=== PATIENT | female | born 1935 | race Hispanic/Latino ===

== ENCOUNTER 2017-06-27 20:24 | Emergency (ER) | payer MEDICARE ==
[~2017-06-27] VITALS: Ht 160 cm; Wt 76.7 kg
[~2017-06-27 20:24] MED LIST: CIPRO500 MG PO; NEXIUM40 MG PO; PAROXETINE HCL20 MG PO; SIMVASTATIN40 MG PO
--- OUTSIDE RECORDS SUMMARY | 2017-06-27 20:27 | XMS REPORT | Clinical Summary ---
Author Author [facility] Organization [facility] Address Unknown Phone Unavailable Care Team Providers Care Canvass Manager Name Role Phone Jose Barkley MD PCP Allergies No Known Allergies Current Medications Prescription Sig. Disp. Refills Start End Date Status Date esomeprazole (NexIUM) 40 TAKE ONE CAPSULE BY MOUTH 0 07/19/19 Active MG capsule EVERY DAY 90 17 PARoxetine (PAXIL) 20 MG TAKE 1 TAB(S) ONCE A DAY 2 09/15/19 Active tablet BY MOUTH FOR 30 DAYS 17 Active Problems No known active problems Encounters Date Type Specialty Care Team Description 10/05/2016 Office Visit Otolaryngology Amie Grewal MD Throat pain in adult (Primary Dx) after 06/26/2016 Family History Medical History Relation Name Comments Stroke Father Ulcers Father stomach Other Mother heart problems Relation Name Status Comments Father Mother Social History Tobacco Use Types Packs/Day Years Used Date Never Smoker Alcohol Use Drinks/Week oz/Week Comments No Sex Assigned at Date Recorded Not on file Last Filed Vital Signs Vital Sign Reading Time Taken Blood Pressure 156/91 10/05/2016 1:08 PM CDT Pulse 78 10/05/2016 1:08 PM CDT Temperature - - Respiratory Rate - - Oxygen Saturation - - Inhaled Oxygen - - Concentration Weight 75.3 kg (166 lb) 10/05/2016 1:08 PM CDT Height 160 cm (5' 3") 10/05/2016 1:08 PM CDT Body Mass Index 29.41 10/05/2016 1:08 PM CDT Plan of Treatment Health Maintenance Due Date Last Done Comments ZOSTER VACCINE 1996 PNEUMOCOCCAL 2001 POLYSACCHARIDE VACCINE AGE 65 AND OVER PNEUMOCOCCAL-13 2001 INFLUENZA VACCINE 11/03/2016 Results Not on fileafter 06/26/2016 Insurance Payer Benefit Subscriber ID Type Phone Address Plan / Group [employer] CIGNA xxxxxxxxxxx [place] [address]
--- NOTE | 2017-06-27 21:27 | Diagnostic Imaging Report ---
EXAM: HIP RIGHT 2-3 VW (+/- PELVIS) INDICATION: Fall, right hip pain COMPARISON: None FINDINGS: BONES: No acute fractures. Subcentimeter focal sclerotic densities in the right humeral head most consistent with bone islands. JOINTS: No malalignment. Degenerative changes of the right hip. Partially visualized left hip arthroplasty. SOFT TISSUES: Regional vascular calcifications. IMPRESSION: No evidence of a pelvic or right hip fracture. Signed by: Dr. Sondra Frank M.D. on 06/27/2017 9:24 PM
--- NOTE | 2017-06-27 21:34 | Diagnostic Imaging Report ---
EXAM: KNEE RIGHT THREE VIEWS, AP, lateral and oblique INDICATION: Fall, right knee pain COMPARISON: None FINDINGS: BONES: Acute nondisplaced fracture of the distal femoral diaphysis with intra-articular extension at the intercondylar notch. JOINTS: No malalignment. SOFT TISSUES: Suprapatellar joint effusion IMPRESSION: Acute nondisplaced fracture of the distal femoral diaphysis with intra-articular extension at the intercondylar notch. Associated joint effusion. Signed by: Dr. Sondra Frank M.D. on 06/27/2017 9:31 PM
[2017-06-27] MEDS: ACETAMINOPHEN 325 MG TAB PO ONE ×2 (22:17→22:20)
[2017-06-27] MEDS ORDERED: TYLENOL WITH C1 EACH PO (22:23)
[2017-06-27 22:24] VITALS: BP 151/79
== END 2017-06-27 22:46 | disposition home or self-care (01) ==
LOC: ER 20:24
DX: S72.491A Other fracture of lower end of right femur, initial encounter for closed fracture (principal); M25.561 Pain in right knee; M25.551 Pain in right hip; W01.0XXA Fall on same level from slipping, tripping and stumbling without subsequent striking against object, initial encounter; Y92.000 Kitchen of unspecified non-institutional (private) residence as the place of occurrence of the external cause
CPT/HCPCS: 99284

== ENCOUNTER 2018-04-03 10:03 | Observation (INO) | payer MEDICARE ==
[~2018-04-03] VITALS: Ht 160 cm; Wt 72.1 kg
[~2018-04-03 10:03] MED LIST changes: +TYLENOL WITH C1 EACH PO
--- OUTSIDE RECORDS SUMMARY | 2018-04-03 10:06 | XMS REPORT | Clinical Summary ---
Author Author [facility] Address Unknown Phone Unavailable Care Team Providers Care Service Bar Cashier Name Role Phone John Barkley MD PCP Allergies No Known Allergies Medications End Date Status Medication Sig Dispensed Refills Start Date Active esomeprazole (NexIUM) 40 TAKE ONE 0 MG capsule CAPSULE BY 7 MOUTH EVERY DAY 90 Active PARoxetine (PAXIL) 20 MG TAKE 1 TAB(S) 2 tablet ONCE A DAY BY 7 MOUTH FOR 30 DAYS Status Hospital, Clinic, or Ordered Dose Route Frequency Start End Date Other Facility Date Administered Medication Active methylPREDNISolone 40 mg IM once 12/10/19 acetate (DEPO-MEDROL) 18 8 injection 40 mgIndications: Derangement of lateral meniscus of right knee Discontinued bupivacaine (MARCAINE) 0.5 mL inj once 12/10/19 0.5 % (5 mg/mL) injection 18 8 0.5 mLIndications: Derangement of lateral meniscus of right knee Ended lidocaine (XYLOCAINE) 10 10 mg inj once 12/29/19 mg/mL (1 %) injection 10 18 8 mgIndications: Primary osteoarthritis of right knee Ended methylPREDNISolone 40 mg IM once 12/29/19 acetate (DEPO-MEDROL) 18 8 injection 40 mgIndications: Primary osteoarthritis of right knee Active Problems Problem Noted Date Lateral subluxation of right patella 01/06/2018 Closed displaced fracture of condyle of right femur 01/06/2018 Derangement of lateral meniscus of right knee 12/17/2017 Primary osteoarthritis of right knee 12/17/2017 Peripheral tear of medial meniscus, current injury, right knee, initial 07/06/2017 encounter Encounters Care Team Description Date Type Specialty Al Cali Jr., MD Primary osteoarthritis of right knee (Primary Dx); Closed displaced fracture of condyle of right femur, sequela 12/28/2017 Office Visit Orthopedic Surgery Carina Mota MA 12/24/2017 Telephone Orthopedic Surgery Al Cali Jr., MD Derangement of lateral meniscus of right knee (Primary Dx); Primary osteoarthritis of right knee 12/09/2017 Office Visit Orthopedic Surgery Carina Mota MA Right knee pain, unspecified chronicity (Primary Dx) 12/07/2017 Orders Only Orthopedic Surgery after 04/02/2017 Family History Medical History Relation Name Comments Stroke Father Ulcers Father stomach Other Mother heart problems Relation Name Status Comments Father Mother Social History Date Tobacco Use Types Packs/Day Years Used Never Smoker Smokeless Tobacco: Never Used Alcohol Use Drinks/Week oz/Week Comments No Sex Assigned at Date Recorded Not on file Industry Job Start Date Occupation Not on file Not on file Not on file Travel End Travel History Travel Start No recent travel history available. Last Filed Vital Signs Time Taken Vital Sign Reading 12/28/2017 10:17 AM CDT Blood Pressure 166/75 12/28/2017 10:17 AM CDT Pulse 96 - Temperature - - Respiratory Rate - - Oxygen Saturation - - Inhaled Oxygen - Concentration 12/28/2017 10:17 AM CDT Weight 72.1 kg (159 lb) 12/28/2017 10:17 AM CDT Height 160 cm (5' 3") 12/28/2017 10:17 AM CDT Body Mass Index 28.17 Plan of Treatment Care Team Description Date Type Specialty Al Cali Jr., MD [address] [facility] [address] [place] [address] [phone] 04/27/2018 Office Visit Orthopedic Surgery Health Maintenance Due Date Last Done Comments SHINGLES VACCINES (1 of 1986 2) PNEUMOCOCCAL 2001 POLYSACCHARIDE VACCINE AGE 65 AND OVER PNEUMOCOCCAL-13 2001 INFLUENZA VACCINE 11/03/2017 Procedures Comments Procedure Name Priority Date/Time Associated Diagnosis CA ARTHROCENTESIS Routine 12/28/2017 Primary osteoarthritis of ASPIR&/INJ MAJOR JT/BURSA 10:00 AM CDT right knee W/O US CA ARTHROCENTESIS Routine 12/09/2017 Primary osteoarthritis of ASPIR&/INJ MAJOR JT/BURSA 10:15 AM CDT right knee W/O US after 04/02/2017 Results * Large Joint Arthrocentesis (12/28/2017 10:00 AM CDT) Narrative Performed At Al Cali Jr., MD 01/06/20185:18 PM Large Joint Arthrocentesis Consent given by: patient Site marked: site marked Timeout: Immediately prior to procedure a time out was called to verify the correct patient, procedure, equipment, computer network support specialist and site/side marked as required Supporting Documentation Indications: pain Procedure Details Preparation: Patient was prepped and draped in the usual sterile fashion Location: knee - R knee Right side: Needle size: 22 G Approach: medial Right knee medications administered: 40 mg methylPREDNISolone acetate 40 mg/mL; 1 mL bupivacaine 0.5 % (5 mg/mL) Patient tolerance: patient tolerated the procedure well with no immediate complications * Large Joint Arthrocentesis (12/09/2017 10:15 AM CDT) Narrative Performed At Al Cali Jr., MD 12/21/20179:05 PM Large Joint Arthrocentesis Consent given by: patient Site marked: site marked Timeout: Immediately prior to procedure a time out was called to verify the correct patient, procedure, equipment, computer network support specialist and site/side marked as required Supporting Documentation Indications: pain Procedure Details Preparation: Patient was prepped and draped in the usual sterile fashion Location: knee - R knee Right side: Needle size: 22 G Right knee medications administered: 40 mg methylPREDNISolone acetate 40 mg/mL; 1 mL bupivacaine 0.5 % (5 mg/mL) Patient tolerance: patient tolerated the procedure well with no immediate complications after 04/02/2017 Insurance Payer Benefit Subscriber ID Type Phone Address Plan / Group [employer] CIGNA xxxxxxxxxxx HMO [employer] HMO [place] ([place] [address] Advance Directives Patient has advance care planning documents on file. For more information, ephraim e contact: Héctor Pavon [address] [place] [id number]
--- OUTSIDE RECORDS SUMMARY | 2018-04-03 10:06 | XMS REPORT | Continuity of Care Document ---
Author Author [facility] Interface Address Unknown Phone Unavailable Problems Problem Status Onset Date Classification Date Reported Comments Source Peripheral tear of medial meniscus, current injury, right knee, initial encounter 07/06/2017 10/05/2017 [facility] [place] Pain in right knee 06/04/2017 09/03/2017 [facility] [place] M79.605 - PAIN IN LEFT LEG Active 05/24/2015 [facility] [place] 715.95 - OSTEOARTHROS NO Active 01/02/2015 [facility] [place] Lateral subluxation of right patella, initial encounter 09/03/2017 [facility] [place] Medications Medication Details Route Status Patient Instructions Ordering Provider Order Date Source Allergies, Adverse Reactions, Alerts Substance Category Reaction Severity Reaction type Status Date Reported Comments Source Immunizations Immunization Date Given Site Status Last Updated Comments Source Results Order Name Results Value Reference Range Date Interpretation Comments Source Knee wo contrast MRI Knee wo contrast MRI EXAMINATION: MRI of the right knee without contrast HISTORY: S83.104A Unspecified dislocation of right knee, initial encounter; medial right knee pain x6 months following a fall; right knee medial meniscus tear; right knee medial condyle subchondral insufficiency fracture COMPARISON: Radiograph dated 05/28/2017 and prior MR examination dated 06/29/2017 are reviewed. TECHNIQUE: Multiplanar, multisequence magnetic resonance imaging of the right knee is performed with an extremity coil without contrast. FINDINGS: Menisci: --Medial: Incomplete radial tear of the posterior horn of the medial meniscus is redemonstrated with near complete extrusion of the meniscal body within the medial gutter. There is underlying myxoid degeneration within the body of the medial meniscus. --Lateral: There is a nondisplaced horizontal tear versus myxoid degeneration involving the anterior horn of the lateral meniscus, similar to the prior examination. Ligaments: The anterior cruciate ligament is intact. There is diffuse thickening and increased intraligamentous signal within the proximal to mid fibers of the posterior cruciate ligament which remains intact. There is medial bowing of the medial collateral ligament which remains intact. The lateral collateral ligament complex is intact. Extensor mechanism: The extensor mechanism is intact. Muscles: There is normal signal intensity and muscle bulk of the musculature at the knee. Cartilage: Within the medial compartment, there is high-grade, near full- thickness to full-thickness chondrosis involving the weightbearing medial femoral condyle and matching medial tibial plateau, similar to the prior examination. Within the lateral compartment, there is no focal chondrosis or subchondral marrow edema. Within the patellofemoral compartment, there is near full-thickness and full-thickness chondrosis involving the lateral patellar facet and lateral aspect of the patellar median ridge at the superior pole the patella with underlying subchondral edema and cystic change. The trochlear articular cartilage is within normal limits. Bone: There has been interval increase in articular surface collapse/impaction at the site of subchondral insufficiency fracture involving the anterior to central weightbearing medial femoral condyle with associated underlying subchondral cystic change and ill-defined bone marrow edema. Nondisplaced, vertically oriented fracture involving the central aspect of the distal femur has largely healed and is only faintly visualized on the current examination. There is mild subchondral edema and cystic change within the patella. There are no suspicious bone marrow replacing lesions. Soft tissues: There is a small to moderate-sized knee effusion with mild scattered synovitis. There is trace fluid within a Mar's cyst. There is a small to moderate amount of loculated fluid within the semimembranosus-tibial collateral ligament bursa. IMPRESSION: 1. Incomplete radial tear of the posterior horn of the right knee medial meniscus redemonstrated with near complete extrusion of the meniscal body within the medial gutter. 2. Nondisplaced horizontal tear versus myxoid degeneration involving the anterior horn of the right knee lateral meniscus, similar to the prior examination. 3. Interval increase in articular surface collapse/impaction at the site of subchondral insufficiency fracture along the anterior to central weightbearing right medial femoral condyle with associated underlying subchondral cystic change and ill- defined bone marrow edema. 4. Nondisplaced, vertically oriented fracture involving the central aspect of the distal right femur has largely healed is only faintly visualized on the current examination. 5. Chronic moderate grade sprain of the right knee posterior cruciate ligament which remains intact, but demonstrates diffuse thickening and increased intraligamentous signal within the proximal to mid fibers of the PCL. 6. Moderate to severe medial and patellofemoral compartment, bicompartmental chondrosis of the right knee, similar to the prior examination. 7. Small to moderate-sized right knee effusion with mild scattered synovitis. 8. Mild to moderate right knee semimembranosus-tibial collateral ligament bursitis. 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 Possible small medial erosion at the base of the great toe proximal phalanx. No fracture or dislocation is identified. IMPRESSION: Degenerative change of the great toe MTP joint possibly in part related to gout. 10/19/2017 - - Read by: Kenneth Talbert MD Dictated Date/time: 10/20/17 09:05 Electronically Signed by: Kenneth Talbert MD 10/20/17 09:07 FINAL REPORT J[facility]Y Hern[facility]dez Bone Density [employer] MA Bone Density [employer] MA BONE DENSITY ASSESSMENT: 08/13/2017 CLINICAL DATA: Post menopausal and clinical risk for osteoporosis. Z13.820- Screening for osteoporosis M81.0 Age-related osteoporosis without current pathological fracture. M81.0 Age-Related Osteoporosis Without Current Pathological Fracture, Z13.820 Encounter For Screening For Osteoporosis/M81.0 Age-Related Osteoporosis Without Current Pathological Fracture, Z13.820 Encounter For Screening For Osteoporosis FINDINGS: Bone density evaluation was performed 08/13/2017 on the right femur neck using a Hologic unit. The BMD average for the exam is 0.687 g/cm2. The T-score is -1.50 and the Z-score is 0.70. This matches the World Health Organization's criteria for osteopenia and places the patient at a medium risk for fracture. An additional bone density evaluation was performed 08/13/2017 on the right hip using a Hologic unit. The BMD average for the exam is 0.731 g/cm2. The T-score is -1.70 and the Z-score is 0.40. This matches the World Health Organization's criteria for osteopenia and places the patient at a medium risk for fracture. An additional bone density evaluation was performed 08/13/2017 on the AP L1-L4 region of spine using a Hologic unit. The BMD average for the exam is 0.849 g/cm2. The T-score is -1.80 and the Z-score is 0.90. This matches the World Health Organization's criteria for osteopenia and places the patient at a medium risk for fracture. FRAX 10 year probability of major osteoporotic fracture is 7.7% and hip fracture is 1.8%. IMPRESSION: OSTEOPENIA Patient is at medium risk for fracture. Patient consult w/primary care provider is recommended. This exam was interpreted at [id number] at [facility]. Mag Porter M.D. ms/penrad:08/13/2017 11:36:02 Housing Development Specialist(s): Deidra LYONS(R)(Delores), [facility] 08/13/2017 - - Read by: Mag Porter MD Dictated Date/time: 08/13/17 11:36 Electronically Signed by: Mag Porter MD 08/13/17 11:36 [facility] [place] Knee wo contrast MRI Knee wo contrast MRI EXAMINATION: MRI of the right knee without contrast. HISTORY: S83.221A Peripheral tear of medial meniscus, current injury, right knee, initial encounter - S83.221A Peripheral tear of medial meniscus, current injury, right knee, initial encounter; AGE: 82 years GENDER: Female COMPARISON: Right knee radiographs 05/28/2017 TECHNIQUE: Multiplanar, multisequence magnetic resonance imaging of the right knee is performed with an extremity coil without contrast. FINDINGS: Menisci: Medial: There is a complete radial tear of the root of the posterior horn of the medial meniscus with moderate medial extrusion of the body. Myxoid degeneration is noted in the body of the medial meniscus. Lateral: The anterior horn, body, and posterior horn are intact. Ligaments: The anterior cruciate ligament and posterior cruciate ligament are intact. The medial collateral ligament and lateral collateral ligament complex are intact. Edema superficial and deep to the medial collateral ligament is favored to be related to underlying medial tibiofemoral compartment pathology. Extensor mechanism: The extensor mechanism is intact. Muscles: Mild edema in the vastus medialis and vastus lateralis muscles, likely reactive. Cartilage: The patellofemoral articular cartilage demonstrates grade IV chondromalacia in the superior patellar apex and lateral patellar facet with underlying reactive marrow change and subchondral cyst formation.. The medial tibiofemoral articular cartilage demonstrates grade 3 chondromalacia.. The lateral tibiofemoral articular cartilage demonstrates grade 2 chondral thinning.. Bone: There is an acute, impacted subchondral insufficiency fracture of the weightbearing medial femoral condyle. There is approximately 4 mm of impaction. There is marked surrounding marrow edema in the medial femoral condyle. In addition, there is microtrabecular fracturing of the distal femur extending from the subcortical central femoral trochlea approximately into the distal femoral diaphysis. This approaches but does not discretely disrupt the cortical surface of the central femoral trochlea. Soft tissues: There is a large knee joint effusion. Moderate semimembranosus- tibial collateral ligament bursitis. IMPRESSION: 1. Acute subchondral stress/insufficiency fracture of the medial femoral condyle with approximately 4 mm of impaction. Marked surrounding marrow edema. 2. Linear longitudinally oriented macrotrabecular fracture of the central distal femur extending from the subcortical central femoral trochlea superiorly into the distal femoral diaphysis. This approaches but does not discretely disrupt the cortical surface of the central femoral trochlea. 3. Complete tear of the root of the posterior horn of the medial meniscus with moderate medial extrusion. 4. 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 5. Large knee joint effusion. Moderate semimembranosus-tibial collateral ligament bursitis. Critical findings were discussed with Kt Hatch MD on 06/29/2017 5:18 PM CDT via telephone. 06/29/2017 - - Read by: Lio Panda MD Dictated Date/time: 06/29/17 17:01 Electronically Signed by: Lio Panda MD 06/29/17 17:19 FINAL REPORT JERRY Betty Knee 3 views DX Knee 3 views DX EXAM: Knee 3 views DX HISTORY: - pain in right knee m25.561 COMPARISON: None 3 views of the right knee. FINDINGS: No fracture is seen. No significant joint space narrowing. There is slight lateral subluxation of the patella on the Horizon view. Minimal joint fluid noted. Minimal developing superior posterior patellar osteophyte. Subchondral stenosis of the posterior patella. IMPRESSION: Mild degenerative change as described above. 05/28/2017 - - Read by: Kenneth Talebrt MD Dictated Date/time: 05/28/17 11:29 Electronically Signed by: Kenneth aTlbert MD 05/28/17 11:29 FINAL REPORT PILAR Cruza Hip 2/3 views uni DX Hip 2/3 views uni DX CLINICAL HISTORY: - Z96.642 Presence of left artificial hip joint AGE: 81 years GENDER: Female TECHNIQUE: Left hip radiographs, 3 views. COMPARISON: 04/03/2016 FINDINGS: There is no evidence of fracture or dislocation. Osseous mineralization is within normal limits. Postoperative changes from left total hip arthroplasty again noted. No evidence of periprosthetic lucency or fracture. AP view of the pelvis demonstrates mild right hip osteoarthrosis. Degenerative disc disease is seen in the visualized lower lumbar spine. IMPRESSION: Postoperative changes from left total hip arthroplasty without evidence of complication.. 10/07/2016 - - Read by: Lio Panda MD Dictated Date/time: 10/07/16 12:21 Electronically Signed by: Lio Panda MD 10/07/16 12:25 FINAL REPORT [facility]Y Hern[facility] Wrist complete DX Wrist complete DX Exam: Left wrist x-ray, 3 views Reason for Exam: - S63.502A Unspecified sprain of left wrist, initial encounter Comparison Exam: X-ray 01/22/2011 Discussion: No acute fracture line seen within the left wrist. Increased distance seen between the distal radius and ulna. This was also present on 2010 x-ray. The carpal bones are unremarkable. No suspicious osteoblastic or osteolytic lesions seen to suggest pathologic involvement. Sonographic soft tissue swelling is noted. Impression: 1. No acute fracture lines identified. 09/29/2016 - - Read by: Mick Olvera MD Dictated Date/time: 09/29/16 16:01 Electronically Signed by: Mick Olvera MD 09/29/16 16:05 FINAL REPORT JERRY Hern[facility]dez Chest 2 views DX Chest 2 views DX EXAM: Chest 2 views DX HISTORY: Z00.00 Encounter for general adult medical examination without abnormal findings COMPARISON: 04/25/2014 The heart size is normal and the lungs are clear. There is no pleural effusion or pneumothorax. Kyphosis and degenerative change of the spine noted. IMPRESSION: No acute abnormality. 06/15/2016 - - Read by: Kenneth Talbert MD Dictated Date/time: 06/15/16 16:51 Electronically Signed by: Kenneth Talbert MD 06/15/16 16:52 FINAL REPORT JERRY Cruza Hip 2/3 views uni DX Hip 2/3 views uni DX EXAMINATION: Left hip minimum 2 views HISTORY: M16.12 Unilateral primary osteoarthritis, left hip; FINDINGS: AP view of the pelvis and frog leg lateral views of the left hip are performed and compared to pelvic radiograph dated 12/04/2015. There is a left hip arthroplasty in unchanged near-anatomic alignment. Of note, the distal aspect of the femoral stem is not included on the frontal view, but is included on the frog-leg lateral view. There is no evidence of periprosthetic fracture or osteolysis of the visualized portions of the arthroplasty. There is no evidence of asymmetric liner wear or subsidence. The sacral ala appear intact. Degenerative changes of the lumbar spine are partially visualized. IMPRESSION: 1. Left hip arthroplasty in unchanged near-anatomic alignment without periprosthetic fracture, osteolysis, asymmetric liner wear, or subsidence. Of note, the distal aspect of the femoral stem is not included on the frontal view, but is included on the frog-leg lateral view. 2. Degenerative changes of the lumbar spine partially visualized. 04/03/2016 - - Read by: Rey Grajeda MD Dictated Date/time: 04/03/16 13:08 Electronically Signed by: Rey Grajeda MD 04/03/16 13:10 FINAL REPORT JERRY Cruza Pelvis AP DX Pelvis AP DX Pelvis x-ray AP 1 views History: 80-year-old female with chronic left hip pain. Comparison: 07/30/2015 Findings: The bony pelvis appears intact, there is no cortical disruption. The sacrum and SI joints partial visualized are unremarkable. The right hip joint space is narrow with mild arthritic changes. A left hip prosthesis is in place, the acetabular cup and prosthetic head are normal. The femoral stem was partial visualized. IMPRESSION: Unremarkable pelvis x-ray. 12/04/2015 - - Read by: Evelio Springer MD Dictated Date/time: 12/04/15 16:01 Electronically Signed by: Evelio Springer 12/04/15 16:03 FINAL REPORT JERRY Hernández Spine lumbar wo contrast MRI Spine lumbar wo contrast MRI MRI LUMBAR SPINE WITHOUT CONTRAST COMPARISON: 05/24/2015 radiograph exam. TECHNIQUE: Sagittal T1, sagittal T2 with fat saturation, axial T1 and axial T2 images were obtained. No intravenous gadolinium was given. FINDINGS: The paravertebral soft tissues are normal. The conus medullaris terminates at the T12-L1 level. Dextrocurvature of the lumbar spine is present. Lower thoracic spine facet osteoarthritis is present. T12-L1: Right extra foraminal annular fissure is seen. No central canal or foraminal stenosis. L1-L2: Moderate disc narrowing is present, with approximately 2 mm posterior disc osteophyte complex. There is minimal central canal stenosis. Mild left foraminal stenosis is present. Anterior osteophytes are present. L2-L3: 4 mm grade 1 retrolisthesis of L2 on L3 is present with mild disc bulge. Mild central canal stenosis. There is severe left foraminal stenosis and [id number] right foraminal stenosis due to disc osteophyte complex encroachment. L3-L4: 2 mm disc bulge is seen with mild to moderate central canal stenosis. Mild bilateral facet osteoarthritis is present. There is moderate left foraminal stenosis and mild right foraminal stenosis. L4-L5: Moderate ligamenta flava redundancy with mild central canal stenosis. Mild facet osteoarthritis is present. No foraminal stenosis. L5-S1: Minimal disc bulge. No central canal or foraminal stenosis. Large S1 and S2 level sacral canal and bilateral foraminal perineural cysts or Tarlov cysts are present with remodeling of the sacral canal. IMPRESSION: 1. Multilevel disc degenerative disease and spondylosis. Dextrocurvature. 2. L2-L3 significant degenerative changes with retrolisthesis, severe left foraminal stenosis and mild central canal stenosis. 3. L3-L4 [id number]-imithvsy central canal stenosis and moderate left foraminal stenosis. 4. Large S1 and S2 level sacral canal and bilateral foraminal perineural cysts or Tarlov cysts. 09/17/2015 - - Read by: Guerrero Lamb MD Dictated Date/time: 09/17/15 12:15 Electronically Signed by: Guerrero Lamb MD 09/17/15 15:11 FINAL REPORT PILAR Hern[facility]dez Pelvis AP DX Pelvis AP DX EXAM: Pelvis AP DX, Hip 1 view DX HISTORY: pain in left hip COMPARISON: None Frontal view of the pelvis and AP and lateral views of the left hip. Impression: There is advanced joint space narrowing of the left hip with subchondral sclerosis and small marginal osteophytes. Mild joint space narrowing of the right hip. No concerning osseous lesion. Vascular calcifications noted. No fracture is seen. 07/30/2015 - - Read by: Kenneth Talbert MD Dictated Date/time: 07/30/15 10:43 Electronically Signed by: Kenneth Talbert MD 07/30/15 10:46 FINAL REPORT PILAR Hernández Hip 1 view DX Hip 1 view DX EXAM: Pelvis AP DX, Hip 1 view DX HISTORY: pain in left hip COMPARISON: None Frontal view of the pelvis and AP and lateral views of the left hip. Impression: There is advanced joint space narrowing of the left hip with subchondral sclerosis and small marginal osteophytes. Mild joint space narrowing of the right hip. No concerning osseous lesion. Vascular calcifications noted. No fracture is seen. 07/30/2015 - - Read by: Kenneth Talbert MD Dictated Date/time: 07/30/15 10:43 Electronically Signed by: Kenneth Talbert MD 07/30/15 10:46 FINAL REPORT PILAR Hern[facility]dez Spine lumbar series DX Spine lumbar series DX Exam: Lumbar Spine X-ray, 5 views Reason for Exam: back pain Comparison Exam: 06/08/2008 Discussion: 5 non rib-bearing lumbar vertebral bodies are seen. Generalized osteopenia. Vertebral body heights are maintained. Dextroscoliosis seen within the lumbar spine. Grade 1 retrolisthesis seen of L2 on L3. Severe loss in disc height seen at the L1/L2 level. This is associated with kyphosis at this level. Note that a lumbar spine x-ray cannot rule out ligamentous injuries or spinal cord abnormalities. No dilated loops of bowel within the visualized portions of the abdomen and pelvis. Impression: 1. Vertebral body heights are maintained. Multilevel spondylosis as detailed above, most prominent within the upper lumbar spine. 05/24/2015 - - Read by: Mick Olvera MD Dictated Date/time: 05/24/15 10:45 Electronically Signed by: Mick Olvera MD 05/24/15 10:47 FINAL REPORT JERRY Hernández Femur series DX Femur series DX Exam: Left femur x-ray, 2 views Reason for Exam: leg pain Comparison Exam: Left hip x-ray 01/02/2015 Discussion: No acute bony abnormalities identified. Left knee joint is unremarkable for technique. Stable appearing osteoarthritis is seen involving the femoral acetabular joint. No suspicious osteoblastic or osteolytic lesions seen to suggest pathologic involvement. No radiopaque foreign bodies. Moderate amount of scattered plaque seen throughout much of the deep arterial system. Impression: 1. No acute bony abnormalities identified. No suspicious osteoblastic or osteolytic lesions seen to suggest pathologic involvement. 05/24/2015 - - Read by: Mick Olvera MD Dictated Date/time: 05/24/15 10:47 Electronically Signed by: Mick Olvera MD 05/24/15 10:49 FINAL REPORT JERRY Hernández Hip 2 views DX Hip 2 views DX Exam: Left hip x-ray, 2 views Reason for Exam: Osteoarthritis Comparison Exam: 08/08/2013 Discussion: No fractures or dislocations are seen within the left hip. Moderate to advanced osteoarthritis seen within the femoral acetabular joint. It has increased when compared to 2014 exam. No intraosseous lesions identified. No evidence seen for avascular necrosis of the femoral head. Impression: 1. Moderate to advanced osteoarthritis seen within the femoral acetabular joint. It has increased when compared to 2014 exam. 01/02/2015 - - Read by: Mick Olvera MD Dictated Date/time: 01/02/15 09:36 Electronically Signed by: Mick Olvera MD 01/02/15 09:38 FINAL REPORT JERRY Hernández Chest 2 views Chest 2 views CHEST RADIOGRAPHY CLINICAL HISTORY: 401.0 malignant essential hypertension COMPARISON IMAGIN11/13/2013 FINDINGS: Two views of the chest were acquired and submitted for evaluation. There has been no significant interval change. No pleural fluid is identified. The contour of the cardiac silhouette is within normal limits. There is no significant pulmonary consolidation or nodularity. Degenerative changes of the spine noted. IMPRESSION: No significant abnormality. 04/25/2014 - - Read by: Opal Castro DO Dictated Date/time: 04/25/14 14:14 Electronically Signed by: Opal Castro DO 04/25/14 14:15 FINAL REPORT JERRY Hern[facility]dez Chest 2 views Chest 2 views CHEST RADIOGRAPHY CLINICAL HISTORY: 272.0 pure hypercholesterolemia COMPARISON IMAGIN06/16/2011 FINDINGS: Two views of the chest were acquired and submitted for evaluation. No pleural fluid is identified. The contour of the cardiac silhouette is within normal limits. There is no significant pulmonary consolidation or nodularity. Degenerative changes of the spine noted. IMPRESSION: Stable examination of the chest without significant abnormality. 11/13/2013 - - Read by: Opal Castro DO Dictated Date/time: 11/13/13 15:51 Electronically Signed by: Opla Castro DO 11/13/13 15:57 FINAL REPORT JERRY Hernández Hip min 2 views Hip min 2 views 2 view(s) of the left hip. INDICATION: Pain. COMPARISON: June 08, 2008. FINDINGS: No acute fracture or dislocation. Moderate joint space narrowing of the superior weight-bearing surface of the left acetabular joint with associated subchondral sclerosis. Compared with the prior examination, this is stable to mildly worsened. IMPRESSION: 1. Stable to mildly worsened moderate left acetabular degenerative changes. 08/08/2013 - - Read by: Giovanny Palma MD Dictated Date/time: 08/08/13 16:42 Electronically Signed by: Giovanny Palma MD 08/08/13 16:44 FINAL REPORT J[facility]Y Hern[facility]dez Vital Signs Vital Sign Value Date Comments Source Encounters Location Location Details Encounter Type Encounter Number Reason For Visit Attending Provider ADM Date DC Date Status Source [facility] [place] [facility] Services [id number] John Barkley 08/08/2013 08/09/2013 [facility] [place] [facility] [place] [facility] [id number] John Barkley 11/13/2013 11/14/2013 [facility] [place] [facility] [place] [facility] [id number] John Barkley 04/25/2014 04/26/2014 [facility] [place] [facility] [place] [facility] [id number] John Barkley 05/24/2015 05/25/2015 [facility] [place] [facility] [place] [facility] [id number] Al Cali Jr 07/30/2015 07/31/2015 [facility] [place] [facility] [place] [facility] [id number] Al Cali Jr 09/17/2015 09/18/2015 [facility] [place] [facility] [place] [facility] [id number] Al Cali Jr 12/04/2015 12/05/2015 [facility] [place] [facility] [place] [facility] [id number] Al Cali Jr 04/03/2016 04/04/2016 [facility] [place] [facility] [place] [facility] [id number] John Barkley 06/15/2016 06/16/2016 [facility] [place] [facility] [place] [facility] [id number] John Barkley 09/29/2016 09/30/2016 [facility] [place] [facility] [place] [facility] [id number] Al Cali Jr 10/07/2016 10/08/2016 [facility] [place] [facility] [place] [facility] [id number] Al Cali Jr 05/28/2017 05/29/2017 [facility] [place] [facility] [place] [facility] [id number] Kt Hatch 06/29/2017 06/30/2017 [facility] [place] [facility] [place] [facility] [id number] John Barkley 08/13/2017 08/14/2017 [facility] [place] Procedures Procedure Code Date Perfomer Comments Source
--- OUTSIDE RECORDS SUMMARY | 2018-04-03 10:07 | XMS REPORT | Summary of Care ---
Author Author [facility] Out[facility] Imaging - [place] Organization [facility] [place] Address Unknown Phone Unavailable Encounter HQ Arseniontr_jannyper(FIN) [phone] Date(s): 04/03/16 - 04/03/16 [facility] - [place] [address] [place] [address] [phone] Discharge Disposition: Home or Self Care Attending Physician: Al Nance MD Vital Signs No data available for this section Problem List No data available for this section Allergies, Adverse Reactions, Alerts No data available for this section Medications No data available for this section Results No data available for this section Immunizations No data available for this section Procedures No data available for this section Social History No data available for this section Assessment and Plan No data available for this section
--- OUTSIDE RECORDS SUMMARY | 2018-04-03 10:07 | XMS REPORT | Summary of Care ---
Author Author [facility] Outpatient [facility] - [place] Organization [facility] [place] Address Unknown Phone Unavailable Encounter HQ Arseniontr_jannyper(MADISYN) [phone] Date(s): 09/29/16 - 09/29/16 [facility] Outpatient Imaging - [place] [address] [place] [address]- 7 [phone] Discharge Disposition: Home or Self Care Attending Physician: John Barkley MD Vital Signs No data available for [...]
--- OUTSIDE RECORDS SUMMARY | 2018-04-03 10:07 | XMS REPORT | Summary of Care ---
Author Author [facility] Outpatient Imaging - [place] Organization [facility] - [place] Address Unknown Phone Unavailable Encounter HQ Arseniontr_jannyper(FIN) [phone] Date(s): 12/04/15 - 12/04/15 [facility] Outpatient Imaging - [place] [address] [place] [address] 7 [phone] Discharge Disposition: Home or Self Care Attending [...]
--- OUTSIDE RECORDS SUMMARY | 2018-04-03 10:07 | XMS REPORT ---
Author [facility] Address Unknown Phone Unavailable Care Team Providers Care Newspaper Delivery Counselor Name Role Phone Dali QUEZADA Unavailable Unavailable Problems This patient has no known problems. Allergies, Adverse Reactions, Alerts This patient has no known allergies or adverse reactions. Medications This patient has no known medications. Results Test Description Test Time Test Comments Text Results Atomic Results Result Comments HIP RIGHT 2-3 VW (+/- PELVIS) [place] [address] Patient Name: ARASELI NEWMAN MR #: [id number] : 1935 Age/Sex: 82/F Req #: [id number] [facility] Physician: Ordered by: MARYCRUZ QUEZADA MD Report #: [id number] Location: ER Room/Bed: Procedure: [id number] DX/HIP RIGHT 2-3 VW (+/- PELVIS) Exam Date: Exam Time: REPORT STATUS: Signed EXAM: HIP RIGHT 2-3 VW (+/- PELVIS) INDICATION: Fall, right hip pain COMPARISON: None FINDINGS: BONES: No acute fractures. Subcentimeter focal sclerotic densities in the right humeral head most consistent with bone islands. JOINTS: No malalignment. Degenerative changes of the right hip. Partially visualized left hip arthroplasty. SOFT TISSUES: Regional vascular calcifications. IMPRESSION: No evidence of a pelvic or right hip fracture. Signed by: Dr. Enrrique Rivera M.D. on 06/27/2017 9:24 PM Dictated By: ENRRIQUE RIVERA MD 23 Transcribed By: ELIZABETH on 06/27/172123 COPY TO: MARYCRUZ QUEZADA MD KNEE RIGHT THREE VIEWS [place] [address] Patient Name: ARASELI NEWMAN MR #: [id number] : 1935 Age/Sex: 82/F Req #: [id number] Adm Physician: Ordered by: MARYCRUZ QUEZADA MD Report #: [id number] Location: ER Room/Bed: Procedure: [id number] DX/KNEE RIGHT THREE VIEWS Exam Date: 06/27/17 Exam Time: 2099 REPORT STATUS: Signed EXAM: KNEE RIGHT THREE VIEWS, AP, lateral and oblique INDICATION: Fall, right knee pain COMPARISON: None FINDINGS: BONES: Acute nondisplaced fracture of the distal femoral diaphysis with intra-articular extension at the intercondylar notch. JOINTS: No malalignment. SOFT TISSUES: Suprapatellar joint effusion IMPRESSION: Acute nondisplaced fracture of the distal femoral diaphysis with intra-articular extension at the intercondylar notch. Associated joint effusion. Signed by: Dr. Enrrique Rivera M.D. on 06/27/2017 9:31 PM Dictated By: ENRRIQUE RIVERA MD 30 Transcribed By: ELIZABETH on 06/27/172130 COPY TO: MARYCRUZ QUEZADA MD
--- OUTSIDE RECORDS SUMMARY | 2018-04-03 10:07 | XMS REPORT | Summary of Care ---
Author Author [facility] Outpatient Imaging - [place] Organization [facility] - [place] Address Unknown Phone Unavailable Encounter HQ Encntr_blake(FIN) [phone] Date(s): 05/28/17 - 05/28/17 [facility] Outpatient Imaging - [place] [address] [place] [phone] Encounter Diagnosis Pain in right knee (Final) - 06/03/17 Lateral subluxation of right patella, initial encounter (Final) - Discharge Disposition: Home or Self Care Attending [...]
--- OUTSIDE RECORDS SUMMARY | 2018-04-03 10:07 | XMS REPORT | Summary of Care ---
Author Organization Unknown Address Unknown Phone Unavailable Encounter HQ Indiar_blake(MADISYN) [id number] Date(s): 11/13/13 - 11/13/13 [facility] Outpatient Imaging - [address] [address] [place] Discharge Disposition: Home Physician Attending: John Barkley MD Reason for Visit 272.0 - PURE HYPERCHOLE Problem List No data available for this section Allergies, Adverse Reactions, Alerts No data available for this section Medications No data available for this section Medications Administered During Your Visit No data available for this section Immunizations No data available for this section
--- OUTSIDE RECORDS SUMMARY | 2018-04-03 10:07 | XMS REPORT | Summary of Care ---
Author Author [facility] Outpatient Imaging - [place] Organization [facility] Outpatient Imaging - [place] Address Unknown Phone Unavailable Encounter HQ Arseniontr_blake(FIN) [phone] Date(s): 08/13/17 - 08/13/17 [facility] Outpatient Imaging - [place] [address] [place] [address]- 7 [phone] Discharge Disposition: Home or Self Care Attending [...]
--- OUTSIDE RECORDS SUMMARY | 2018-04-03 10:07 | XMS REPORT | Summary of Care ---
Author Author [facility] Outpatient Imaging - [place] Organization [facility] Outpatient Imaging - [place] Address Unknown Phone Unavailable Encounter HQ Arseniontr_jannyper(FIN) [phone] Date(s): 05/24/15 - 05/24/15 [facility] Outpatient Imaging - [place] [address] [place], [place] [id number] [place] [address] [phone] Discharge Disposition: Home Attending Physician: John Barkley MD Vital Signs [...]
--- OUTSIDE RECORDS SUMMARY | 2018-04-03 10:07 | XMS REPORT | Summary of Care ---
Author Author [facility] Outpatient Imaging - [place] [facility] [place] Address Unknown Phone Unavailable Encounter HQ Encntr_aliper(FIN) [phone] Date(s): 10/07/16 - 10/07/16 [facility] Outpatient Imaging - [place] [address] [place] [address]- [phone] Discharge Disposition: Home or Self Care Attending [...]
--- OUTSIDE RECORDS SUMMARY | 2018-04-03 10:07 | XMS REPORT | Summary of Care ---
Author Author [facility] Outpatient Imaging - [place] Organization [facility] Outpatient Imaging - [place] Address Unknown Phone Unavailable Encounter HQ Arseniontr_blake(FIN) [phone] Date(s): 08/13/17 - 08/13/17 [facility] Outpatient Imaging - [place] [address] [place] [address]- 7 [phone] Discharge Disposition: Home or Self Care Attending [...]
--- OUTSIDE RECORDS SUMMARY | 2018-04-03 10:07 | XMS REPORT | Summary of Care ---
Author Organization Unknown Address Unknown Phone Unavailable Encounter HQ Indiar_blake(MADISYN) [phone] Date(s): 08/08/13 - 08/08/13 [facility] Outpatient Imaging - [address] [address] [place] Discharge Disposition: Home Physician Attending: John Barkley MD Reason for Visit 719.45 - JOINT PAIN-PELV Problem List No data available for this section Allergies, Adverse Reactions, Alerts No data available for this section Medications No data available for this section Medications Administered During Your Visit No data available for this section Immunizations No data available for this section
--- OUTSIDE RECORDS SUMMARY | 2018-04-03 10:07 | XMS REPORT | Summary of Care ---
Author Author [facility] Outpatient Imaging - [place] Organization [facility] Outpatient [facility] [place] Address Unknown Phone Unavailable Encounter HQ Arseniontr_jannyper(FIN) [phone] Date(s): 07/30/15 - 07/30/15 [facility] Outpatient Imaging - [place] [address] [place], [place] [id number] [place] [address] [phone] Discharge Disposition: Home Attending Physician: Al Nance MD Vital Signs [...]
--- OUTSIDE RECORDS SUMMARY | 2018-04-03 10:07 | XMS REPORT | Summary of Care ---
Author Organization Unknown Address Unknown Phone Unavailable Encounter HQ Arseniontr_blake(MADISYN) [phone] Date(s): 04/25/14 - 04/25/14 [facility] Outpatient Imaging - [address] [address] [place] Discharge Disposition: Home Physician Attending: John Barkley MD Reason for Visit 401.0 - MALIGNANT HYPER Problem List No data available for this section Allergies, Adverse Reactions, Alerts No data available for this section Medications No data available for this section Medications Administered During Your Visit No data available for this section Immunizations No data available for this section
--- OUTSIDE RECORDS SUMMARY | 2018-04-03 10:07 | XMS REPORT | Summary of Care ---
Author Author [facility] Outpatient Imaging - [place] Organization [facility] Outpatient Imaging - [place] Address Unknown Phone Unavailable Encounter HQ Arseniontr_jannyper(FIN) [phone] Date(s): 06/15/16 - 06/15/16 [facility] Outpatient Imaging - [place] [address] [place] [phone] Discharge Disposition: Home or Self Care Attending [...]
--- OUTSIDE RECORDS SUMMARY | 2018-04-03 10:07 | XMS REPORT | Summary of Care ---
Author Author [facility] Outpatient Imaging - [place] Organization [facility] Outpatient Imaging - [place] Address Unknown Phone Unavailable Encounter HQ Encntr_aliper(FIN) [phone] Date(s): 06/29/17 - 06/29/17 [facility] Outpatient Imaging - [place] [address] [place] [address] [phone] Encounter Diagnosis Peripheral tear of medial meniscus, current injury, right knee, initial encounte r (Final) - 07/05/17 Discharge Disposition: Home or Self Care Attending Physician: Kt Hatch MD Vital Signs No data available for [...]
--- OUTSIDE RECORDS SUMMARY | 2018-04-03 10:07 | XMS REPORT | Summary of Care ---
Author Author [facility] Outpatient Imaging - [place] Organization [facility] Outpatient Imaging - [place] Address Unknown Phone Unavailable Encounter HQ Arseniontr_jannyper(FIN) [phone] Date(s): 09/17/15 - 09/17/15 [facility] Outpatient Imaging - [place] [address] [place] [address]- 7 [phone] Discharge Disposition: Home Attending Physician: Al Nance [...]
[2018-04-03] MEDS ORDERED: SODIUM CHLORIDE 0.9% 1000ML 1,000 ML IV STA (10:48)
[2018-04-03] MEDS ORDERED: DIATRIZOATE MEGL/DIATRIZOA SOD 30 ML BTL PO ONE (10:58)
[2018-04-03] MEDS ORDERED: MORPHINE SULFATE INJ 4 MG/ML INJ IV NR (11:00)
[2018-04-03] MEDS ORDERED: SODIUM CHLORIDE 0.9% 500ML 500 ML ONE (11:35)
[2018-04-03 11:42] LABS: BASOPHILS % 0.3 % (0.0-1.0); HEMATOCRIT 43.1 % (34.2-44.1); HEMOGLOBIN 14.9 g/dL (12.0-16.0); LYMPHOCYTES # (AUTO) 0.2 (1.0-3.2); LYMPHOCYTES % 2.4 % (18.0-39.1); MEAN CORPUSCULAR HEMOGLOBIN 31.4 pg (28-32); MEAN CORPUSCULAR HGB CONC 34.6 g/dL (31-35); MEAN CORPUSCULAR VOLUME 90.7 fL (81-99); MONOCYTES # (AUTO) 0.2 (0.2-0.8); MONOCYTES % 2.8 % (4.4-11.3); NEUTROPHILS # (AUTO) 7.4 (2.1-6.9); NEUTROPHILS % 94.1 % (38.7-80.0); PLATELET COUNT 212 x10e3/uL (140-360); RED BLOOD COUNT 4.75 x10e6/uL (3.6-5.1); RED CELL DISTRIBUTION WIDTH 12.5 % (11.7-14.4)
[2018-04-03 11:52] LABS: INR 0.94; PROTHROMBIN TIME 13.4 seconds (11.9-14.5)
[2018-04-03 11:53] LABS: PARTIAL THROMBOPLASTIN TIME 28.5 seconds (23.8-35.5)
[2018-04-03] MEDS ORDERED: SODIUM CHLORIDE 0.9% 1000ML 1,000 ML IV SCH (12:00)
[2018-04-03 12:03] LABS: BACTERIA,URINE RARE /HPF; BILIRUBIN,URINE NEGATIVE (NEGATIVE); CLARITY,URINE CLEAR (CLEAR); COLOR,URINE YELLOW (YELLOW); EPITHELIAL CELLS,URINE FEW /LPF; KETONES,URINE NEGATIVE (NEGATIVE); LEUKOCYTE ESTERASE ,URINE NEGATIVE (NEGATIVE); NITRITE,URINE NEGATIVE (NEGATIVE); PROTEIN,URINE DIPSTICK NEGATIVE (NEGATIVE); RBC,URINE 0-5 /HPF (0-5); URINE UROBILINOGEN 0.2 mg/dL (0.2 - 1); WBC,URINE (MAN) 0-5 /HPF (0-5)
[2018-04-03 12:05] LABS: ALANINE AMINOTRANSFERASE 20 IU/L (0-55); ALBUMIN 4.3 g/dL (3.5-5.0); ALBUMIN/GLOBULIN RATIO 1.3 (0.8-2.0); ALKALINE PHOSPHATASE 63 IU/L (40-150); AMYLASE 80 U/L (25-125); ANION GAP 20.6 mmol/L (8-16); BLOOD UREA NITROGEN 22 mg/dL (7-26); BUN/CREATININE RATIO 27 (6-25); CALCIUM 9.6 mg/dL (8.4-10.2); CARBON DIOXIDE 20 mmol/L (22-29); CHLORIDE 101 mmol/L (98-107); CREATINE KINASE 88 IU/L (29-168); CREATININE, SERUM 0.83 mg/dL (0.57-1.11); EST GLOMERULAR FILTRATION RATE > 60 ML/MIN (60-); GLUCOSE 144 mg/dL (74-118); LIPASE 6 U/L (8-78); MAGNESIUM 2.4 MG/DL (1.3-2.1); POTASSIUM 3.6 mmol/L (3.5-5.1); SODIUM 138 mmol/L (136-145)
--- NOTE | 2018-04-03 12:12 | Diagnostic Imaging Report ---
EXAMINATION: CHEST SINGLE (PORTABLE) COMPARISON: None INDICATION: Chest pain DISCUSSION: Frontal view of the chest obtained at 1119 hours. HEART AND MEDIASTINUM: The heart is mildly enlarged. Small hiatal hernia cannot be excluded. The aorta is ectatic LINES: None. LUNGS: The lungs are well inflated and clear. No pneumonia or pulmonary edema. PLEURA: No pleural effusion or pneumothorax. BONES AND SOFT TISSUES: There are degenerative changes of the left shoulder. No focal osseous lesion. The soft tissues are normal. IMPRESSION: Mild cardiomegaly. Possible small hiatal hernia. No acute pulmonary process. Signed by: Dr. Barby Gomez MD on 04/03/2018 12:08 PM
[2018-04-03 12:15] LABS: B-TYPE NATRIURETIC PEPTIDE2 24.4 pg/mL (0-100)
[2018-04-03] MEDS ORDERED: CEFEPIME HCL 2 GM VIAL IV SCH (12:15)
[2018-04-03] MEDS: CEFEPIME 2 GM/NS 0.9% 100 ML 100 ML IV SCH ×2 (13:05→23:28)
--- NOTE | 2018-04-03 13:17 | Diagnostic Imaging Report ---
CT Abdomen And Pelvis with Intravenous Contrast INDICATION: Abdominal pain, nausea, vomiting TECHNIQUE: Thin collimation axial images obtained from the diaphragm to the level of the pubic symphysis following the uneventful administration of oral and 100 cc of low osmolar, nonionic intravenous contrast. Dose reduction techniques used: Automated exposure control, adjustment of the mAs and/or kVp according to patient size, standardized low-dose protocol, and/or iterative reconstruction technique. RADIATION DOSE: Total DLP: 423.3 mGy*cm Estimated effective dose: (DLP x 0.015 x size factor) mSv CTDIvol has been reviewed. It is below the limits set by the Radiation Protocol Committee (RPC). COMPARISON: No relevant priors. ABDOMEN FINDINGS: Lung Bases: Mild cardiomegaly. Moderate-sized hiatal hernia containing stomach. There is subsegmental atelectasis in the lung bases. Liver: Decreased attenuation suggestive of steatosis.. Multiple low attenuating lesions throughout are suggestive of cysts. The largest is in segment 4 and measures 2.3 cm. Gallbladder: Present, distended, but otherwise normal. No biliary ductal dilatation. Pancreas: Normal attenuation without mass or ductal dilatation. Spleen: Normal in size. No evidence of mass.. Adrenal Glands: No evidence for mass. Kidneys: Right: Normal enhancement. Scattered cysts measure up to 10 mm. No hydronephrosis. Left: Normal enhancement. A lower pole cyst measures 10 mm. No hydronephrosis. Lymph Nodes: No enlarged abdominal or periaortic lymph nodes. Aorta: Diffusely ectatic with scattered calcifications. PELVIS FINDINGS: Bowel: Stomach: Collapsed. Small Bowel: Normal in diameter with normal wall thickness. Enteric contrast present throughout. Large Bowel: Enteric contrast present throughout. Mild burden of diverticulosis coli without associated inflammation. Appendix: Normal appendix. Bladder: Normal. The uterus is absent. There are no adnexal masses. No free fluid or fluid collection. Bones: Left hip prosthesis is in appropriate position without associated fracture or lucency to suggest loosening. There are scattered bone islands in the proximal femurs. There is scoliosis of the lumbar spine convex to the right. Retrolisthesis of L2 on L3 is approximately 7 mm. There are multiple perineural cysts in the sacrum measuring up to 3 cm. IMPRESSION: 1. Moderate sized hiatal hernia. Diverticulosis coli. No evidence for bowel obstruction or inflammation. Normal appendix. 2. Steatosis and hepatic cysts. 3. Bilateral renal cysts. 4. Skeletal findings as described above. Signed by: Dr. Barby Gomez MD on 04/03/2018 1:13 PM
[2018-04-03] MEDS ORDERED: SODIUM CHLORIDE 0.9% 50ML 50 ML ONE (13:57)
[2018-04-03] MEDS ORDERED: IOPAMIDOL 370 MG/ML 200 ML INFUS..BTL INJ ONE (13:57)
[2018-04-03] MEDS: VANCOMYCIN 1GM/NS 250 ML 250 ML IV SCH ×2 (14:10→23:15)
[2018-04-03] MEDS ORDERED: ONDANSETRON HCL INJ 2 MG/ML VIAL IV NR (14:11)
[2018-04-03] MEDS ORDERED: ACETAMINOPHEN 1000 MG/100 ML IV NR (14:11)
[2018-04-03] MEDS: SODIUM CHLORIDE 0.9% 1000ML 1,000 ML IV SCH ×2 (15:30→19:40)
[2018-04-03] MEDS ORDERED: PROMETHAZINE HCL (IM) 25 MG/ML VIAL IV PRN (15:30)
[2018-04-03] MEDS: FAMOTIDINE 20 MG/2 ML VIAL IV SCH (15:30)
[2018-04-03] MEDS ORDERED: ONDANSETRON HCL INJ 2 MG/ML VIAL IV PRN (15:30)
--- OUTSIDE RECORDS SUMMARY | 2018-04-03 15:52 | XMS REPORT | Clinical Summary ---
Author Author [facility] Address Unknown Phone Unavailable Care Team Providers Care Preflight Inspector Name Role Phone John Barkley MD PCP [...] Type Specialty Al Cali Jr., MD [address] [facility] [address] [place] [address] [phone] 04/27/2018 Office Visit Orthopedic Surgery Health Maintenance Due Date Last Done Comments SHINGLES VACCINES (1 of 1986 2) PNEUMOCOCCAL 2001 POLYSACCHARIDE VACCINE AGE 65 AND OVER PNEUMOCOCCAL-13 2001 INFLUENZA VACCINE 11/03/2017 Procedures Comments Procedure Name Priority Date/Time Associated Diagnosis [place] ARTHROCENTESIS Routine 12/28/2017 Primary osteoarthritis of ASPIR&/INJ MAJOR JT/BURSA 10:00 AM CDT right knee W/O US [place] ARTHROCENTESIS Routine 12/09/2017 Primary osteoarthritis of ASPIR&/INJ [...] verify the correct patient, procedure, equipment, computer systems support specialist and site/side marked as required [...] verify the correct patient, procedure, equipment, computer systems support specialist and site/side marked as required [...] xxxxxxxxxxx HMO [employer] HMO MCR ADV ([place]) [place] [address] Advance Directives Patient has advance care planning documents on file. For more information, ephraim e contact: Héctor Pavon [address] [place] [phone]
--- NOTE | 2018-04-03 16:28 | NUR ---
PATIENT CARE AND REPORT CALLED TO CECILIA COOPER, VERBALIZED NO QUESTIONS AT THIS TIME.
--- NOTE | 2018-04-03 17:07 | NUR ---
PT REC'D TO OBS 182.
[2018-04-03 17:10] VITALS: BP 170/76
--- NOTE | 2018-04-03 17:25 | NUR ---
COMPUTER INFORMATION SYSTEMS PROFESSOR AT BEDSIDE DRAWING LABS FOR LACTIC ACID, ORDERED IN ER.
[2018-04-03] MEDS ORDERED: PANTOPRAZOLE SO40 MG PO (18:17)
[2018-04-03 18:18] VITALS: BP 170/76
--- NOTE | 2018-04-03 18:35 | NUR ---
Initial assessment completed; family at bedside. Call light in reach. BP systolic 170. Dr Amado made aware. Awaiting call back. Pt denies any n/v/d at this time. NAD reported.
[2018-04-03] MEDS ORDERED: ACETAMINOPHEN 325 MG TAB PO PRN (19:45)
[2018-04-03 20:21] VITALS: BP 150/70
[2018-04-03 21:40] VITALS: BP 150/70
[2018-04-04] VITALS: BP 146/63
[2018-04-04] MEDS: SODIUM CHLORIDE 0.9% 1000ML 1,000 ML IV SCH ×2 (02:48→13:20)
[2018-04-04] MEDS: FAMOTIDINE 20 MG/2 ML VIAL IV SCH ×2 (02:48→15:35)
[2018-04-04 04:00] VITALS: BP 134/62
[2018-04-04 05:25] LABS: BASOPHILS % 0.2 % (0.0-1.0); EOSINOPHILS # (AUTO) 0.1 (0.0-0.4); EOSINOPHILS % 1.6 % (0.0-6.0); HEMOGLOBIN 12.6 g/dL (12.0-16.0); LYMPHOCYTES # (AUTO) 0.6 (1.0-3.2); LYMPHOCYTES % 14.5 % (18.0-39.1); MEAN CORPUSCULAR HEMOGLOBIN 31.3 pg (28-32); MEAN CORPUSCULAR HGB CONC 34.1 g/dL (31-35); MEAN CORPUSCULAR VOLUME 91.8 fL (81-99); MONOCYTES # (AUTO) 0.4 (0.2-0.8); NEUTROPHILS # (AUTO) 3.3 (2.1-6.9); NEUTROPHILS % 75.5 % (38.7-80.0); PLATELET COUNT 142 x10e3/uL (140-360); RED BLOOD COUNT 4.03 x10e6/uL (3.6-5.1); RED CELL DISTRIBUTION WIDTH 12.4 % (11.7-14.4)
[2018-04-04 05:50] LABS: CREATINE KINASE MB 1.1 ng/mL (0-5.0)
[2018-04-04 06:40] LABS: ALANINE AMINOTRANSFERASE 16 IU/L (0-55); ALBUMIN 3.2 g/dL (3.5-5.0); ALBUMIN/GLOBULIN RATIO 1.2 (0.8-2.0); BLOOD UREA NITROGEN 9 mg/dL (7-26); BUN/CREATININE RATIO 14 (6-25); CALCIUM 8.2 mg/dL (8.4-10.2); CARBON DIOXIDE 20 mmol/L (22-29); CHLORIDE 109 mmol/L (98-107); CREATININE, SERUM 0.63 mg/dL (0.57-1.11); EST GLOMERULAR FILTRATION RATE > 60 ML/MIN (60-); GLUCOSE 131 mg/dL (74-118); SODIUM 139 mmol/L (136-145)
--- NOTE | 2018-04-04 06:40 | NUR ---
report given to oncoming nurse, patient aware of change. Patient in no distress, call butler within reach.
[2018-04-04 06:41] LABS: ALKALINE PHOSPHATASE 47 IU/L (40-150); CHOL/HDL RATIO 3.5 (3.0-3.6); CHOLESTEROL 154 MD/DL (0-199); HDL CHOLESTEROL 44 MG/DL (40-60); LDL CHOLESTEROL 88 MG/DL (60-130); TRIGLYCERIDES 111 MG/DL (0-149)
--- NOTE | 2018-04-04 06:50 | NUR ---
rounded with the hourly shift nurse, patient aware of change. Patient in no distress, call butler within reach. Addendum: 04/04/18 at 1852 by Anna Almonte RN wrong time input, note for 1839.
[2018-04-04 07:51] VITALS: BP 125/79
[2018-04-04 08:00] VITALS: BP 140/67
--- NOTE | 2018-04-04 10:29 | NUR ---
SOCIAL WORK INITIAL ASSESSMENT Clean Up Supervisor to bedside to discuss plan of care with patient/family. CM/SW role and care transitions discussed. Anticipated discharge plan discussed along with duration of care. CM/SW discussed patients right to make decisions in care. CM/SW work hours given. Patient lives: IN OWN HOUSE WITH FAMILY Admit/Transfer: VIA HOME POA/Emergency contact: GRANDDAANDI PEDERSEN [phone] Current/Previous Home Health: NONE PCP/Follow-up Care: [facility]O Current/Previous DME: [facility] [employer] USES Other Services: NONE Employment Status: RETIRED Areas of Concerns: NA Referral Needs: NA Education Needs: NA IMM/ELLIS given and signed (if applicable): ELLIS Goal for discharge: RETURN HOME INDEPENDENTLY CM/SW left business card at the bedside with contact information. Name and number was also written on the patients whiteboard. Patient verbalized understanding of discussion. CM will follow-up with ongoing discharge and transition of care needs.
[2018-04-04 11:44] VITALS: BP 140/67
[2018-04-04] MEDS: VANCOMYCIN 1GM/NS 250 ML 250 ML IV SCH (11:59)
[2018-04-04 15:32] VITALS: BP 139/65
[2018-04-04] MEDS: CEFEPIME 2 GM/NS 0.9% 100 ML 100 ML IV SCH (15:33)
[2018-04-04] MEDS ORDERED: LEVAQUIN500 MG PO (18:20)
[2018-04-04] MEDS ORDERED: FLAGYL500 MG PO (18:20)
[2018-04-04] MEDS ORDERED: ZOFRAN4 MG PO (18:20)
[2018-04-04] MEDS ORDERED: SODIUM CHLORIDE 0.9% 500ML 500 ML IV ONE (18:30)
--- NOTE | 2018-04-04 20:12 | Discharge Summary ---
PRINCIPAL DIAGNOSES 1. Acute gastroenteritis. 2. Hypokalemia. 3. Metabolic acidosis. 4. Sepsis. 5. Lactic acidosis. 6. Diverticulosis. 7. Early sepsis. SECOND DIAGNOSIS: Depression. CHIEF COMPLAINT: Nausea, vomiting, and diarrhea. HISTORY OF PRESENT ILLNESS: An 82-year-old woman with nausea, vomiting, and diarrhea. Please refer to Jailene and P for further details. HOSPITAL COURSE: The patient had acute gastroenteritis. She received IV cefepime and IV vancomycin, did well, tolerated diet, and received 2 L of fluids with an additional 500 mL normal saline bolus. The patient was discharged home with Flagyl and Levaquin. DISCHARGE MEDICATIONS: Per electronic medical records and include Levaquin and Flagyl. FOLLOWUP: Follow up with primary care doctor in 3 days. GLORIA PERALTA MD Job#: [id number] PUN
[2018-04-04] MEDS ORDERED: PANTOPRAZOLE SOD 40 MG TABEC PO SCH (21:00)
[2018-04-04] MEDS ORDERED: PAROXETINE HCL 20 MG TAB PO SCH (21:00)
--- NOTE | 2018-04-04 21:15 | History and Physical ---
PRIMARY CARE PHYSICIAN: Dr. Barkley CHIEF COMPLAINT: Nausea, vomiting, and diarrhea. HISTORY OF PRESENT ILLNESS: This is an 82-year-old female with a history of osteoporosis, noted to have nausea, vomiting, and diarrhea for the past one day. She has subjective fevers. No chills or sweats. She was found to have acute gastroenteritis. She is admitted for further evaluation and management. PAST MEDICAL HISTORY: 1. Osteoporosis. 2. Hyperlipidemia. 3. Depression. 4. GERD. 5. Abdominal hernia. PAST SURGICAL HISTORY: Hysterectomy. ALLERGIES: PER ELECTRONIC MEDICAL RECORD. FAMILY AND SOCIAL HISTORY: The patient is . No alcohol. MEDICATIONS: Per electronic medical record. REVIEW OF SYSTEMS: Denies any headache, vision changes, or skin rashes. Denies any leg pain, back pain, or neck pain. Denies any chest pain or shortness of breath. PHYSICAL EXAMINATION: VITAL SIGNS: Have been reviewed. GENERAL: A tired-appearing woman resting in bed. HEENT: Anicteric. CARDIOVASCULAR: Normal S1 and S2. LUNGS: Moderate breath sounds. ABDOMEN: Soft, nontender and nondistended. EXTREMITIES: No edema or calf tenderness. NEUROLOGIC: Awake, alert, and oriented x3. SKIN: Dry. PSYCHIATRIC: Normal affect. LABS: Reviewed. MEDICATIONS: Reviewed. ASSESSMENT AND PLAN: This is an 82-year-old woman with: 1. Acute gastroenteritis. 2. Hypokalemia. 3. Metabolic acidosis. 4. Diverticulosis. 5. Sepsis. 6. Lactic acidosis. 7. Depression. 8. Gastroesophageal reflux disease. PLAN: 1. Rehydrate patient. 2. Give additional bolus now and as mentioned she received about 3 liters of fluid. 3. Continue antibiotics IV. 4. Patient is quickly improving. She is able to tolerate diet at this time. Possible discharge later today after fluid bolus. She will need to go home with oral Flagyl and Levaquin and follow up with her primary care doctor within 3 days, which she has agreed to do. 5. Continue PPI and SCD for prophylaxis. DISPOSITION: Possible discharge later today. Job#: [id number] KEVIN
== END 2018-04-04 19:36 | disposition home or self-care (01) ==
LOC: ER 10:03 → ERHOLD 15:49 → IMCU 16:37
PROVIDERS: ADMIT Internal Medicine; ATTEND Internal Medicine
DX: A41.9 Sepsis, unspecified organism (principal); K52.9 Noninfective gastroenteritis and colitis, unspecified; E87.6 Hypokalemia; K57.30 Diverticulosis of large intestine without perforation or abscess without bleeding; E87.2 Acidosis; F32.9 Major depressive disorder, single episode, unspecified; K21.9 Gastro-esophageal reflux disease without esophagitis; M81.0 Age-related osteoporosis without current pathological fracture; E78.5 Hyperlipidemia, unspecified
CPT/HCPCS: 36415 ×2; 71045; 74177; 80053 ×2; 80061; 81001; 82150; 82550 ×2; 82553 ×2; 83605; 83690; 83735; 83880; 84484 ×2; 85025 ×2; 85610; 85730; 87040; 87086; 93005; 96360; 96361; 99284; G0378 ×2; J3370 ×2; J7030 ×2; J7040 ×2; Q9967; J2405

== ENCOUNTER 2019-08-18 00:26 | Emergency (ER) | payer MEDICARE ==
[~2019-08-18] VITALS: Ht 160 cm; Wt 72.6 kg
[~2019-08-18 00:26] MED LIST changes: +FLAGYL500 MG PO; +LEVAQUIN500 MG PO; +PANTOPRAZOLE SO40 MG PO; +ZOFRAN4 MG PO
--- OUTSIDE RECORDS SUMMARY | 2019-08-18 00:30 | XMS REPORT | Summary of Care ---
Author Author [facility] Outpatient Imaging - [facility] Organization [facility] Outpatient Imaging - [facility] Address Unknown Phone Unavailable Encounter HQ Encntr_blake(FIN) [phone] Date(s): 10/19/17 - 10/19/17 [facility] Outpatient Imaging - [place] [address] [place] [address] [phone] Encounter Diagnosis Gout due to renal impairment, right ankle and foot (Final) - 10/24/17 Osteophyte, right foot (Final) - Discharge Disposition: Home or Self Care Attending Physician: John Barkley MD Referring Physician: John Barkley MD Vital Signs No [...]
--- OUTSIDE RECORDS SUMMARY | 2019-08-18 00:30 | XMS REPORT | Summary of Care ---
Author Author [facility] Outpatient Imaging - [facility] [place] Organization [facility] Outpatient Imaging - [facility] [place] Address Unknown Phone Unavailable Encounter HQ Dana(FIN) [phone] Date(s): 12/16/17 - 12/16/17 [facility] Outpatient Imaging - [place] [address] [place] [id number] [phone] Encounter Diagnosis Other tear of medial meniscus, current injury, right knee, initial encounter (Final) - 12/21/17 Other intraarticular fracture of lower end of right radius, subsequent encounter for closed fracture with routine healing (Final) - Synovitis and tenosynovitis, unspecified (Final) - Effusion, right knee (Final) - Discharge Disposition: Home or Self Care Attending Physician: Al Nance MD Referring Physician: Al Nance MD Vital Signs No [...]
--- OUTSIDE RECORDS SUMMARY | 2019-08-18 00:30 | XMS REPORT | Continuity of Care Document ---
Author Author [employer]Ch[employer], ARASELI Wilde [employer] Address Unknown Phone Unavailable Care Team Providers Care Reconciliation Analyst Name Role Phone [employer] IB[employer] Unavailable Un available Problems Problem Status Onset Date Classification Date Reported Comments Source Other tear of medial meniscus, current i njury, right knee, initial encounter 12/22/2017 07/05/2018 [facility] [place] Gout due to renal impairment, right ankle and foot 10/25/2017 05/08/2018 [facility] [place] Peripheral tear of medial meniscus, curr ent injury, right knee, initial encounter 07/06/2017 10/05/2017 [facility] [place] Pain in right knee 06/04/2017 09/03/2017 [facility] [place] M79.605 - PAIN IN LEFT LEG Act blayne 05/24/2015 [facility] [place] 715.95 - OSTEOARTHROS NO Active 01/02/2015 [facility] [place] Other intraarticular fracture of lower e nd of right radius, subsequent encounter for closed fracture with routine healing 07/05/2018 [facility] [place] Synovitis and tenosynovitis, unspecified 07/05/2018 [facility] [place] Effusion, right knee 07/05/2018 [facility] [place] Osteophyte, right foot 05/08/2018 [facility] [place] Lateral subluxation of right patella, initial encounte r 09/03/2017 [facility] [place] Medications No Data Provided for This Section Allergies, Adverse Reactions, Alerts No Known Medication Allergies Immunizations No Data Provided for This Section Results No Data Provided for This Section Pathology Reports No Data Provided for This Section Diagnostic Reports Report Value Date Source Knee wo contrast MRI EXAMINATI ON: MRI of the right knee without contrast [...] medial meniscus. --Lateral: There is a nondisplaced horiz ontal tear versus myxoid degeneration involving the anterior [...] IMPRESSION: 1. Incomplete radial tear of the posteri or horn of the right knee medial meniscus redemonstrated with near complete extrusion of the meniscal body within the medial gutter. 2. Nondisplaced horizontal tear versus m yxoid degeneration involving the anterior horn of the right knee lateral meniscus, similar to the prior examination. 3. Interval increase in articular surfac e collapse/impaction at the site of subchondral insufficiency fracture along the anterior to central weightbearing right medial femoral condyle with associated underlying subchondral cystic change and ill-defined bone marrow edema. 4. Nondisplaced, vertically oriented fra cture involving the central aspect of the distal right femur has largely healed is only faintly visualized on the current examination. 5. Chronic moderate grade sprain of the right knee posterior cruciate ligament which remains intact, but demonstrates diffuse thickening and increased intraligamentous signal within the proximal to mid fibers of the PCL. 6. Moderate to severe medial and patello femoral compartment, bicompartmental chondrosis of the right knee, similar to the prior examination. 7. Small to moderate-sized right knee ef fusion with mild scattered synovitis. 8. Mild to moderate right knee semimembr anosus-tibial collateral ligament bursitis. 12/16/2017 [facility] Foot series DX EXAM: Foot seri es DX HISTORY: - M10.371 Gout due to [...] possibly in part related to gout. 10/19/2017 JERR[facility] Hernández Bone Density D[employer] MA BONE [...] is recommended. This exam was interpreted at [id number] at [facility] [place]. Mag Porter M.D., ms/modesta:08/13/2017 11:36:02 Cloth Shrinker(s): Deidra LYONS(R)(M), [facility] [place] [place] 08/13/2017 [facility] Knee wo contrast MRI EXAMINATI ON: MRI of the right knee without contrast. [...] collateral ligament bursitis. IMPRESSION: 1. Acute subchondral stress/insufficienc y fracture of the medial femoral condyle with approximately 4 mm of impaction. Marked surrounding marrow edema. 2. Linear longitudinally oriented macrot rabecular fracture of the central distal femur extending from the subcortical central femoral trochlea superiorly into the distal femoral diaphysis. This approaches but does not discretely disrupt the cortical surface of the central femoral trochlea. 3. Complete tear of the root of the post erior horn of the medial meniscus with moderate medial extrusion. 4. 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 5. Large knee joint effusion. Moderate s emimembranosus-tibial collateral ligament bursitis. Critical findings were discussed with Kt Hatch MD on 06/29/2017 5:18 PM CDT via telephone. 06/29/2017 [facility] Knee 3 views DX EXAM: Knee 3 v iews DX HISTORY: - pain in right knee m25.561 COMPARISON: None 3 views of the right knee. FINDINGS: No fracture is seen. No significant joint space narrowing. There is slight lateral subluxation of the patella on the Horizon view. Minimal joint fluid noted. Minimal developing superior posterior patellar osteophyte. Subchondral stenosis of the posterior patella. IMPRESSION: Mild degenerative change as described above. 05/28/2017 JERR[facility] Hernández Hip 2/3 views uni DX CLINICAL HISTORY: [...] hip arthroplasty without evidence of complication.. 10/07/2016 [facility] Wrist complete DX Exam: Left w rist x-ray, 3 views Reason for Exam: - [...] 1. No acute fracture lines identified. 09/29/2016 JERR[facility] Hernández Chest 2 views DX EXAM: Chest 2 views DX HISTORY: Z00.00 Encounter for general adult medical examination without abnormal findings COMPARISON: 04/25/2014 The heart size is normal and the lungs are clear. There is no pleural effusion or pneumothorax. Kyphosis and degenerative change of the spine noted. IMPRESSION: No acute abnormality. 06/15/2016 JERR[facility] Hernández Hip 2/3 views uni DX EXAMINATI ON: Left hip minimum 2 views HISTORY: M16.12 [...] IMPRESSION: 1. Left hip arthroplasty in unchanged ne ar-anatomic alignment without periprosthetic fracture, osteolysis, asymmetric liner wear, or subsidence. Of note, the distal aspect of the femoral stem is not included on the frontal view, but is included on the frog-leg lateral view. 2. Degenerative changes of the lumbar sp ine partially visualized. 04/03/2016 [facility] [place] Pelvis AP DX Pelvis x-ray AP 1 [...] partial visualized. IMPRESSION: Unremarkable pelvis x-ray. 12/04/2015 [facility] [place] Spine lumbar wo contrast MRI M RI LUMBAR SPINE WITHOUT CONTRAST COMPARISON: 05/24/2015 radiograph [...] There is severe left foraminal stenosis and [id number] right foraminal stenosis due to disc osteophyte [...] and spondylosis. Dextrocurvature. 2. L2-L3 significant degenerative change s with retrolisthesis, severe left foraminal stenosis and mild central canal stenosis. 3. L3-L4 cdql-ed-cmrvriak central canal stenosis and moderate left foraminal stenosis. 4. Large S1 and S2 level sacral canal an d bilateral foraminal perineural cysts or Tarlov cysts. 09/17/2015 [facility] [place] Pelvis AP DX EXAM: Pelvis AP D X, Hip 1 view DX HISTORY: pain in left hip COMPARISON: None Frontal view of the pelvis and AP and lateral views of the left hip. Impression: There is advanced joint space narrowing of the left hip with subchondral sclerosis and small marginal osteophytes. Mild joint space narrowing of the right hip. No concerning osseous lesion. Vascular calcifications noted. No fracture is seen. 07/30/2015 [facility] [place] Hip 1 view DX EXAM: Pelvis AP [...] calcifications noted. No fracture is seen. 07/30/2015 [facility] [place] Spine lumbar series DX Exam: L umbar Spine X-ray, 5 views Reason for Exam: back pain Comparison Exam: 06/08/2008 Discussion: 5 non rib-bearing lumbar vertebral tiffanie s are seen. Generalized osteopenia. Vertebral body heights [...] pelvis. Impression: 1. Vertebral body heights are maintaine d. Multilevel spondylosis as detailed above, most prominent within the upper lumbar spine. 05/24/2015 [facility] [place] Femur series DX Exam: Left fem ur x-ray, 2 views Reason for Exam: leg [...] system. Impression: 1. No acute bony abnormalities identifi ed. No suspicious osteoblastic or osteolytic lesions seen to suggest pathologic involvement. 05/24/2015 [facility] [place] Hip 2 views DX Exam: Left hip [...] increased when compared to 2014 exam. 01/02/2015 [facility] [place] Chest 2 views CHEST RADIOGRAPH Y CLINICAL HISTORY: 401.0 malignant essential hypertension COMPARISON IMAGIN11/13/2013 FINDINGS: Two views of the chest were acquired and submitted for evaluation. There has been no significant interval change. No pleural fluid is identified. The contour of the cardiac silhouette is within normal limits. There is no significant pulmonary consolidation or nodularity. Degenerative changes of the spine noted. IMPRESSION: No significant abnormality. 04/25/2014 [facility] [place] Chest 2 views CHEST RADIOGRAPH Y CLINICAL HISTORY: 272.0 pure hypercholesterolemia COMPARISON IMAGIN06/16/2011 FINDINGS: Two views of the chest were acquired and submitted for evaluation. No pleural fluid is identified. The contour of the cardiac silhouette is within normal limits. There is no significant pulmonary consolidation or nodularity. Degenerative changes of the spine noted. IMPRESSION: Stable examination of the chest without significant abnormality. 11/13/2013 [facility] [place] Hip min 2 views 2 view(s) of t he left hip. INDICATION: Pain. COMPARISON: June 08, 2008. FINDINGS: No acute fracture or dislocation. Moderate joint space narrowing of the superior weight-bearing surface of the left acetabular joint with associated subchondral sclerosis. Compared with the prior examination, this is stable to mildly worsened. IMPRESSION: 1. Stable to mildly worsened moderate le ft acetabular degenerative changes. 08/08/2013 [facility] [place] Consultation Notes No Data Provided for This Section Discharge Summaries No Data Provided for This Section History and Physicals No Data Provided for This Section Vital Signs No Data Provided for This Section Encounters Location Location Details Encounter Type Encounter Number Reason For Visit Attending Provider ADM Date DC Date Status Source [facility]patient Imaging - [place] [facility] [id number] [facility] 08/08/2013 08/09/2013 [facility] [place] [facility] [place] [facility] [id number] 08 [facility] 11[facility]13/2013 11/14/2013 [facility] [place] [facility] [place] [facility] [id number] [facility] 04/25/2014 04/26/2014 [facility] [place] [facility] [place] [facility] [id number] 11 [facility] 05/24/2015 05/25/2015 [facility] [place] [facility] [place] [facility] [id number] Al Cali Jr 07/30/2015 07/31/2015 [facility] [place] [facility] - [place] [facility] [id number] 13 Al Cali Jr 09/17/2015 09/18/2015 [facility] [place] [facility] [place] [facility] [id number] Al Cali Jr 12/04/2015 12/05/2015 [facility] [place] [facility] [place] [facility] [id number] Al Cali Jr 04/03/2016 04/04/2016 [facility] [place] [facility] [place] [facility] [id number] 16 [facility] 06/15/2016 06/16/2016 [facility] [place] [facility] [place] [facility] [id number] 17 John Barkley 09/29/2016 09/30/2016 [facility] [place] [facility] [place] [facility] [id number] 18 Al Cali Jr 10/07/2016 10/08/2016 [facility] [place] [facility] [place] [facility] [id number] 19 Al Cali Jr 05/28/2017 05/29/2017 [facility] [place] [facility] [place] [facility] [id number] 20 Kt Hatch 06/29/2017 06/30/2017 [facility] [place] [facility] [place] [facility] [id number] 21 John Barkley 08/13/2017 08/14/2017 [facility] [place] [facility] [place] [facility] [id number] 22 John Barkley 10/19/2017 10/20/2017 [facility] [place] [facility] [place] [facility] [id number] 23 Al Cali Jr 12/16/2017 12/17/2017 [facility] [place] Procedures No Data Provided for This Section Assessment and Plan No Data Provided for This Section Plan of Care No Data Provided for This Section Social History Social History Date Source No data available for this section 12/17/2017 [facility] [place] Family History No Data Provided for This Section Advance Directives No Data Provided for This Section Functional Status No Data Provided for This Section
--- OUTSIDE RECORDS SUMMARY | 2019-08-18 00:30 | XMS REPORT ---
Author [facility] t Address [address] [place] [address] Phone Unavailable Care Team Providers Care Manager Data Warehousing Name Role Phone JOHN BARKLEY MD PCP Jose Cali MD Attphys Carina Mota MA Attphys Unavailable Dali QUEZADA Attphys Unavailable Jose Cali Jr Attphys Jose Barkley Attphys Nisha Hatch Attphys Payers Payer Name Policy Type Policy Number Effective Date Expiration Date S jenniffer [facility] ADV[facility]xx /04/2016-PresentO xxxxxxxxxxx 2016 00:00:00 [place] [facility] v[facility]ist [facility] [id number] 2017 00:00:00 [facility] [id number] 2015 00:00:00 [facility] [id number] 2011 00:00:00 [facility] Jered [facility] [id number] 2005 00:00:00 [facility] Problems Condition Name Condition Details Condition Category Status Onset Date Resolution Date Last Treatment Date Treating Clinician Comments Source Chest pain Chest pain Disease Active 2018-10-07 00:00:00 Héctro Pavon Luetscher's syndrome Luetscher's syndrome Disease Active 00:00:00 Héctor Pavon Osteophyte, right foot Osteophyte, right foot Disease Active 2018-10-07 00:00:[address] Synovitis and tenosynovitis, unspecified Synovitis and tenosynovitis, unspecified Disease Active 2018-10-07 00:00:00 Héctor Pavon Vomiting Vomiting Disease Active 2018-10-07 00:00:00 Héctor Pavon Status post total right knee replacement Status post t otal right knee replacement Disease Active 2018-07-21 00:00:00 Héctor Pavon OA (osteoarthritis) of knee OA (osteoarthritis) of knee Disease Active 2018-07-04 00:00:00 Héctor Pavon Post-traumatic osteoarthritis of right knee Post-traum atic osteoarthritis of right knee Disease Active 2018-05-18 00:00:00 Jailene Pavon 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 Disease Active 2018-01-06 00:00:00 Héctor Pavon Closed displaced fracture of condyle of right femur Cl osed displaced fracture of condyle of right femur Disease Active 2018-01-06 00:00:00 Héctor Pavon Derangement of lateral meniscus of right knee Derangem ent of lateral meniscus of right knee Disease Active 2017-12-17 00:00:00 Jailene Pavon Primary osteoarthritis of right knee Primary osteoarthritis of right knee Disease Active 2017-12-17 00:00:00 Héctor Pavon Gout due to renal impairment, right ankle and foot Gou t due to renal impairment, right ankle and foot Disease Active 2017-10-25 00:00:00 Héctor Pavon Peripheral tear of medial meniscus, curr ent injury, right knee, initial encounter Peripheral tear of medial meniscus, curr ent injury, right knee, initial encounter Disease Active 2017-07-06 00:00:00 Héctor Pavon Allergies, Adverse Reactions, Alerts Allergy Name Allergy Type Status Severity Reaction(s) Onset Date Inacti ve Date Treating Clinician Comments Source Pregabalin Allergy to Substance Active Severe RASH 2018-04-03 00:00:00 [facility] Pregabalin Propensity to adverse reactions to drug Active Itching 2018-04-03 00:00:00 Héctor corley Family History Family Member Diagnosis Comments Start Date Stop Date Source Natural father Stroke [place] [facility] Natural father Ulcers [place] [facility] Natural mother Other [place] [facility] Social History Social Habit Start Date Stop Date Quantity Comments Source Sex Assigned At Beck jimenez Alevism Alcohol intake 2019-01-25 00:00:00 2019-01-25 00:00:00 Current non-drinker of alcohol (finding) Héctor Pavon Smoking Status Start Date Stop Date Source Never smoker Héctor corley Medications Ordered Medication Name Filled Medication Name Start Date Stop Da te Current Medication? Ordering Clinician Indication Dosage Frequency Signature (SIG) Comments Components Source diclofenac (VOLTAREN) 50 MG EC tablet 2019-01-25 00:00 :00 2019-02-25 05:59:00 No 50mg Q.5D Take 1 tablet ( 50 mg total) by mouth 2 (two) times a day for 30 days. Héctor Pavon PAROXETINE HCL ORAL 2018-07-06 20:04:16 Yes Bedtime Héctor Pavon pantoprazole (PROTONIX) 20 MG EC tablet 2018-07-06 20:04:16 Yes 20mg QD Take 20 mg by mouth nightly. Héctor carreno lactose-reduced food (BOOST BREEZE NUTRITIONAL ORAL) 2 20:04:16 Yes QD Take by mouth nightly. Jailene Pavon Levofloxacin (Levaquin) 500 Mg Tablet Levofloxacin (Levaquin ) 500 Mg Tablet 2018-04-04 00:00:00 Yes Laith Jennings Md 500 Daily [facility] Metronidazole (Flagyl) 500 Mg Tablet Metronidazole (Flagyl) 500 Mg Tablet 2018-04-04 00:00:00 Yes Laith Jennings Md 500 Three Time s A Day [facility] Ondansetron Hcl (Zofran*) 4 Mg Tablet Ondansetron Hcl (Zofra n*) 4 Mg Tablet 2018-04-04 00:00:00 Yes Laith Jennings Md 4 Every 6 Ho urs [facility] latanoprost (XALATAN) 0.005 % ophthalmic solution 2018-03-04 00:00:00 Yes INSTILL 1 DROP IN BOTH EYES IN THE EVENING Héctor Pavon fenofibrate (TRICOR) 48 MG tablet 2018-02-24 00:00:00 Yes 48mg QD Take 48 mg by mouth daily. Héctor Pavon Pantoprazole Sodium (Protonix) 40 Mg Tablet. Pantopr azole Sodium (Protonix) 40 Mg Tablet. Yes 20 Bedtime [facility] Paroxetine Hcl 20 Mg Tablet Paroxetine Hcl 20 Mg Tablet Yes 20 Bedtime [facility] Acetaminophen With Codeine (Tylenol With Codeine #3 Tablet) 1 Each Tablet, 1-2 Tab Oral Acetaminophen With Codeine (Tylenol With Codeine #3 Tablet) 1 Each Tablet, 1-2 Tab Oral 2018-04-03 00:00:00 No Every 6 Hours as needed for Pain [facility] Ciprofloxacin Hcl (Cipro) 500 Mg Tablet, 500 Mg Oral C iprofloxacin Hcl (Cipro) 500 Mg Tablet, 500 Mg Oral 2018-04-03 00:00:00 No 500 Twice A Day [facility] Esomeprazole Magnesium (Nexium) 40 Mg Capsule., 40 M g Oral Esomeprazole Magnesium (Nexium) 40 Mg Capsule., 40 Mg Oral 2018-04-03 00:00:00 No 40 Bedtime [facility] Simvastatin 40 Mg Tablet, 80 Mg Oral Simvastatin 40 Mg Tablet, 8 0 Mg Oral 2018-04-03 00:00:00 No 80 Bedtime [facility] Vital Signs Vital Name Observation Time Observation Value Comments Source Systolic blood pressure 2019-01-25 14:40:00 131 mm[Hg] Héctor Pavon Diastolic blood pressure 2019-01-25 14:40:00 79 mm[Hg] Héctor Pavon Heart rate 2019-01-25 14:40:00 77 /min Héctor Pavon Body height 2019-01-25 14:40:00 160 cm Héctor Pavon Body weight 2019-01-25 14:40:00 68.947 kg Héctor Pavon BMI 2019-01-25 14:40:00 26.93 kg/m2 Héctor Pavon Procedures Procedure Date / Time Performed Performing Clinician Sourghada e XR KNEE 1 OR 2 VW RIGHT 2019-01-25 14:47:55 Al Cali XR KNEE 1 OR 2 VW RIGHT 2018-09-28 15:45:26 Al Cali XR KNEE 1 OR 2 VW RIGHT 2018-08-17 15:05:52 Al Cali Computed tomography of abdomen and pelvis with contrast 2017 00:00:00 JAREN MONTAÑO [facility] STRAPPING OF KNEE 2017-06-27 00:00:00 MARYCRUZ QUEZADA [facility] Plan of Care Planned Activity Planned Date Details Comments Source Future Scheduled Test 2019-11-04 00:00:00 INFLUENZA VACCINE [code = INFLUENZA VACCINE] Héctor Torresist Future Scheduled Test 2001 00:00:00 65+ PNEUMOCOCCAL V ACCINE (1 of 2 - PCV13) [code = 65+ PNEUMOCOCCAL VACCINE (1 of 2 - PCV13)] Héctor Pavon Future Scheduled Test 1986 00:00:00 SHINGLES VACCINES (#1) [code = SHINGLES VACCINES (#1)] Héctor Pavon Encounters Start Date/Time End Date/Time [facility] Source 2018-04-03 15:49:00 2018-04-03 10:03:00 Admitted Inpatient (obs) 1 MARYCRUZ QUEZADA [facility] [id number] [facility] 2017-12-16 11:01:00 2017-12-16 23:59:00 Outpatient Al Cali [facility] [id number] [facility] [place] 2017-10-19 13:49:00 2017-10-19 23:59:00 [facility] [id number] [facility] - [place] 2017-08-13 08:14:00 2017-08-13 23:59:00 Outpatient John Barkley [facility] [id number] [facility] [place] 2017-08-13 08:14:00 2017-08-13 23:59:00 Outpatient John Barkley [facility] [id number] [facility] [place] 2017-06-29 14:46:00 2017-06-29 23:59:00 Outpatient Kt Hatch [facility] [id number] [facility] [place] 2017-06-27 20:24:00 2017-06-27 22:46:00 Departed Emergency Room ER DAMIENMARYCRUZ [facility] [id number] [facility] 2017-05-28 10:34:00 2017-05-28 23:59:00 Outpatient Al Cali [facility] [id number] [facility] [place] 2016-10-07 10:35:00 2016-10-07 23:59:00 Outpatient Al Cali [facility] [id number] [facility] [place] 2016-09-29 15:07:00 2016-09-29 23:59:00 Outpatient Filippo John Jose [facility] [id number] [facility] [place] 2016-06-15 13:31:00 2016-06-15 23:59:00 Outpatient Ra Filipposachi Garcia [facility] [id number] [facility] [place] 2016-04-03 11:32:00 2016-04-03 23:59:00 Outpatient Al Cali HOIP MHHOIP [id number] [facility] [place] 2015-12-04 15:41:00 2015-12-04 23:59:00 Outpatient Al Cali HOIP MHHOIP [id number] [facility] [place] 2015-09-17 09:13:00 2015-09-17 23:59:00 Outpatient Al Cali [facility] [id number] [facility] [place] Out patient Imaging - [place] 2015-07-30 10:10:00 2015-07-30 23:59:00 Outpatient Al Cali [facility] [id number] [facility] [place] 2015-05-24 09:33:00 2015-05-24 23:59:00 Outpatient John Barkley [facility] [id number] [facility] [place] 2014-04-25 13:28:00 2014-04-25 23:59:00 Outpatient John Barkley [facility] IE[facility]T [id number] 2013-11-13 15:01:00 2013-11-13 23:59:00 Outpatient John Barkley IEUTT IEUTT [id number] 2013-08-08 16:05:00 2013-08-08 23:59:00 [facility] [id number] Results Test Description Test Time Test Comments Results Result Comments Source Blood Culture 2018-04-04 11:36:00 Test Item Blood Culture (test code = 33883134) NO GROWTH AFTER 24 HOURS [facility] Ujsut3745-33-12 06:41:00* Test Item Value Reference Range Interpretation Comments Sodium Level (test code = 2951-2) 139 136-145 [facility]assium Sxknd6953-45-30 06:41:00* Test Item Value Reference Range Interpretation Comments Potassium Level (test code = 2823-3) 3.0 3.5-5.1 [facility]landChloride Rkfej3299-87-75 06:41:00* Test Item Value Reference Range Interpretation Comments Chloride Level (test code = 2075-0) 109 98-107 [facility]landCarbon Dioxide Arquz2620-46-82 06:41:00* Test Item Value Reference Range Interpretation Comments Carbon Dioxide Level (test code = 2028-9) 20 22-29 [facility]landAnion Xpc2692-75-41 06:41:00* Test Item Value Reference Range Interpretation Comments Anion Gap (test code = 16135-3) 13.0 8-16 [facility]landBlood Urea Xlbvubyl6067-78-99 06:41:00* Test Item Value Reference Range Interpretation Comments Blood Urea Nitrogen (test code = 3094-0) 9 7-26 [facility]landCreatinine2018-12-31 06:41:00* Test Item Value Reference Range Interpretation Comments Creatinine (test code = 2160-0) 0.63 0.57-1.11 [facility]landBUN/Creatinine Oygdj7218-13-31 06:41:00* Test Item Value Reference Range Interpretation Comments BUN/Creatinine Ratio (test code = 3097-3) 14 6-25 [facility]landEstimat Glomerular Filtration Rate 2018-04-04 06:41:00* Test Item Value Reference Range Interpretation Comments Estimat Glomerular Filtration Rate (test code = 911899869) > 60 >60 Ranges were taken from the National Kidney Disease Education Program and the [facility] Foundation literature.Reference ranges:60 or greater: Amfiby52-09 ( for 3 consecutive months): Chronic kidney disease 15 or less: Kidney failureHCA Houston Healthcare PearlandGlucose Oefdl8008-97-96 06:41:00* Test Item Value Reference Range Interpretation Comments Glucose Level (test code = WPT5124) 131 74-118 [facility]landCalcium Frfpn1781-43-13 06:41:00* Test Item Value Reference Range Interpretation Comments Calcium Level (test code = 38686-1) 8.2 8.4-10.2 [facility]landTotal Tlnlklmec1708-91-00 06:41:00* Test Item Value Reference Range Interpretation Comments Total Bilirubin (test code = 1975-2) 1.3 0.2-1.2 [facility] PearlandAspartate Amino Transf (AST/SGOT) 2018-04-04 06:41:00* Test Item Value Reference Range Interpretation Comments Aspartate Amino Transf (AST/SGOT) (test code = Aspartate Amino Transf (AST/SGOT)) 15 5-34 [facility]landAlanine Aminotransferase (ALT/SGPT) 2018-04-04 06:41:00* Test Item Value Reference Range Interpretation Comments Alanine Aminotransferase (ALT/SGPT) (test code = 1742-6) 16 0-55 [facility]landTotal Ddrcunz6791-01-67 06:41:00* Test Item Value Reference Range Interpretation Comments Total Protein (test code = 2885-2) 5.9 6.5-8.1 [facility]landAlbumin2018-12-31 06:41:00* Test Item Value Reference Range Interpretation Comments Albumin (test code = 1751-7) 3.2 3.5-5.0 [facility]landGlobulin2018-12-31 06:41:00* Test Item Value Reference Range Interpretation Comments Globulin (test code = 77875-5) 2.7 2.3-3.5 [facility]landAlbumin/Globulin Ulggk7152-88-58 06:41:00 * Test Item Value Reference Range Interpretation Comments Albumin/Globulin Ratio (test code = 1759-0) 1.2 0.8-2.0 [facility]landAlkaline Bcpnryxnhny6856-86-83 06:41:00* Test Item Value Reference Range Interpretation Comments Alkaline Phosphatase (test code = 6768-6) 47 40-150 [facility]landTriglycerides Sjxjr6796-13-09 06:41:00* Test Item Value Reference Range Interpretation Comments Triglycerides Level (test code = 2571-8) 111 0-149 [facility]landCholesterol Abcas2786-88-48 06:41:00* Test Item Value Reference Range Interpretation Comments Cholesterol Level (test code = 2093-3) 154 0-199 Less than 200 mg/dL Low Dhit477 - 239 mg/dL Borderline Wtoa233 m g/dl and greater High Risk [facility] PearlandLDL Pogumgvqswf3974-73-20 06:41:00* Test Item Value Reference Range Interpretation Comments LDL Cholesterol (test code = 2089-1) 88 60-130 [facility] PearlandHDL Speskdkroza1567-84-07 06:41:00* Test Item Value Reference Range Interpretation Comments HDL Cholesterol (test code = 2085-9) 44 40-60 [facility]landCholesterol/HDL Fljzt2535-11-51 06:41:00 * Test Item Value Reference Range Interpretation Comments Cholesterol/HDL Ratio (test code = 9830-1) 3.5 3.0-3.6 [facility]landCreatine Kinase [id number] 05:53:00* Test Item Value Reference Range Interpretation Comments Creatine Kinase MB (test code = 97588-9) 1.10 0-5.0 [facility]landTroponin U7559-16-34 05:53:00* Test Item Value Reference Range Interpretation Comments Troponin I (test code = GZA0309) 0.033 0-0.300 [facility]landCreatine Todiql2542-71-23 05:46:00* Test Item Value Reference Range Interpretation Comments Creatine Kinase (test code = 2157-6) 102 29-168 [facility]landWhite Blood Jocea3122-14-17 05:26:00* Test Item Value Reference Range Interpretation Comments White Blood Count (test code = 6690-2) 4.40 4.8-10.8 [facility]landRed Blood Mvups8631-98-08 05:26:00* Test Item Value Reference Range Interpretation Comments Red Blood Count (test code = 789-8) 4.03 3.6-5.1 [facility]landHemoglobin2018-12-31 05:26:00* Test Item Value Reference Range Interpretation Comments Hemoglobin (test code = 03707-3) 12.6 12.0-16.0 [facility]landHematocrit2018-12-31 05:26:00* Test Item Value Reference Range Interpretation Comments Hematocrit (test code = 4544-3) 37.0 34.2-44.1 [facility] PearlandMean Corpuscular Rufkcy5864-42-57 05:26:00* Test Item Value Reference Range Interpretation Comments Mean Corpuscular Volume (test code = 787-2) 91.8 81-99 [facility]landMean Corpuscular Yaytrdjxhm8768-64-67 05:26:00* Test Item Value Reference Range Interpretation Comments Mean Corpuscular Hemoglobin (test code = 785-6) 31.3 28-32 [facility]landMean Corpuscular Hemoglobin Concent 2018-04-04 05:26:00* Test Item Value Reference Range Interpretation Comments Mean Corpuscular Hemoglobin Concent (test code = 786-4) 34.1 31-35 [facility]landRed Cell Distribution Beoor9693-26-35 05:26:00* Test Item Value Reference Range Interpretation Comments Red Cell Distribution Width (test code = 92018-1) 12.4 11.7 -14.4 [facility] PearlandPlatelet Rwkvw5283-24-24 05:26:00* Test Item Value Reference Range Interpretation Comments Platelet Count (test code = 777-3) 142 140-360 [facility] PearlandNeutrophils (%) (Auto)2018-04-04 05:26:00 * Test Item Value Reference Range Interpretation Comments Neutrophils (%) (Auto) (test code = 23279-7) 75.5 38.7-80.0 [facility]landLymphocytes (%) (Auto)2018-04-04 05:26:00 * Test Item Value Reference Range Interpretation Comments Lymphocytes (%) (Auto) (test code = 736-9) 14.5 18.0-39.1 [facility]landMonocytes (%) (Auto)2018-04-04 05:26:00* Test Item Value Reference Range Interpretation Comments Monocytes (%) (Auto) (test code = 5905-5) 8.0 4.4-11.3 [facility]landEosinophils (%) (Auto)2018-04-04 05:26:00 * Test Item Value Reference Range Interpretation Comments Eosinophils (%) (Auto) (test code = 713-8) 1.6 0.0-6.0 [facility]landBasophils (%) (Auto)2018-04-04 05:26:00* Test Item Value Reference Range Interpretation Comments Basophils (%) (Auto) (test code = 706-2) 0.2 0.0-1.0 [facility]landIM GRANULOCYTES %2018-04-04 05:26:00* Test Item Value Reference Range Interpretation Comments IM GRANULOCYTES % (test code = IM GRANULOCYTES %) 0.2 0.0- 1.0 [facility]landNeutrophils # (Auto)2018-04-04 05:26:00* Test Item Value Reference Range Interpretation Comments Neutrophils # (Auto) (test code = 751-8) 3.3 2.1-6.9 [facility]landLymphocytes # (Auto)2018-04-04 05:26:00* Test Item Value Reference Range Interpretation Comments Lymphocytes # (Auto) (test code = 15661-5) 0.6 1.0-3.2 [facility]landMonocytes # (Auto)2018-04-04 05:26:00* Test Item Value Reference Range Interpretation Comments Monocytes # (Auto) (test code = 742-7) 0.4 0.2-0.8 [facility]landEosinophils # (Auto)2018-04-04 05:26:00* Test Item Value Reference Range Interpretation Comments Eosinophils # (Auto) (test code = 711-2) 0.1 0.0-0.4 [facility]landBasophils # (Auto)2018-04-04 05:26:00* Test Item Value Reference Range Interpretation Comments Basophils # (Auto) (test code = 704-7) 0.0 0.0-0.1 [facility] PearlandAbsolute Immature Granulocyte (auto 2018-04-04 05:26:00* Test Item Value Reference Range Interpretation Comments Absolute Immature Granulocyte (auto (glenn t code = Absolute Immature Granulocyte (auto) 0.01 0-0.1 [facility] PearlandLactic Acid Rzbpa5011-14-94 18:16:00* Test Item Value Reference Range Interpretation Comments Lactic Acid Level (test code = Lactic Acid Level) 17.3 4.5- 19.8 [facility] PearlandCT ABDOMEN/PELVIS H5619-39-51 13:06:[address], [place] [address] Patient Name: ARASELI NEWMAN MR #: [id number] : 1935 Age/Sex: 82/F Req #: [id number] [facility] Physician: Ordered by: JAREN MONTAÑO NP Report #: [id number] Location: ER Room/Bed: Procedure: 1230-[address]/CT ABDOMEN/PELVIS W Exam Date: 04/03/18 Exam Ti me: 1236 REPORT STATUS: Signed C T Abdomen And Pelvis with Intravenous Contrast INDICATION: Abdominal pain, nausea, vomiting TECHNIQUE: Thin collimation axial images obtained from the diaphragm to the level of the pubic symphysis following the uneventful admini stration of oral and 100 cc of low osmolar, nonionic intravenous contrast. Dose reduction techniques used: Automated exposure control, adjustment of the mAs and/or kVp according to patient size, standardized low-dose protocol, an d/or iterative reconstruction technique. RADIATION DOSE: Total DL P: 423.3 mGy*cm Estimated effective dose: (DLP x 0.015 x size factor) mSv CTDIvol has been reviewed. It is below the limits set by the Radiati on Protocol Committee (RPC). COMPARISON: No relevant priors. ABDOME N FINDINGS: Lung Bases: Mild cardiomegaly. Moderate-sized hiatal hernia con taining stomach. There is subsegmental atelectasis in the lung bases. Janee er: Decreased attenuation suggestive of steatosis.. Multiple low attenuating lesions throughout are suggestive of cysts. The largest is in segment 4 and me asures 2.3 cm. Gallbladder: Present, distended, but otherwise normal. No bi liary ductal dilatation. Pancreas: Normal attenuation without mass or sunday sharla dilatation. Spleen: Normal in size. No evidence of mass.. Adrenal Glands: No evidence for mass. Kidneys: Right: Normal enhancement. S cattered cysts measure up to 10 mm. No hydronephrosis. Left: Normal enh ancement. A lower pole cyst measures 10 mm. No hydronephrosis. Lymph No shaye: No enlarged abdominal or periaortic lymph nodes. Aorta: Diffusely ec tatic with scattered calcifications. PELVIS FINDINGS: Bowel: Stoma ch: Collapsed. Small Bowel: Normal in diameter with normal wall thickness. E nteric contrast present throughout. Large Bowel: Enteric contrast present th roughout. Mild burden of diverticulosis coli without associated inflammation. Appendix: Normal appendix. Bladder: Normal. The uterus is absent. Th ere are no adnexal masses. No free fluid or fluid collection. Bones: L eft hip prosthesis is in appropriate position without associated fracture or l ucency to suggest loosening. There are scattered bone islands in the proximal femurs. There is scoliosis of the lumbar spine convex to the right. Retrolisth esis of L2 on L3 is approximately 7 mm. There are multiple perineural cysts in the sacrum measuring up to 3 cm. IMPRESSION: 1. Moderate sized hiat al hernia. Diverticulosis coli. No evidence for bowel obstruction or inflammat ion. Normal appendix. 2. Steatosis and hepatic cysts. 3. Bilateral r enal cysts. 4. Skeletal findings as described above. Signed by: Dr. David Alvarez MD on 04/03/2018 1:13 PM Dictated By: ALYSA ALVAREZ MD [id number] Transcribed By: ELIZABETH on 04/03/18 1313 COPY TO: JAREN MONTAÑO NP B-Type Natriuretic Dhqramk6268-94-80 12:15:00* Test Item Value Reference Range Interpretation Comments B-Type Natriuretic Peptide (test code = 71880-0) 24.4 0-100 [facility]2018-04-03 12:07:00 [place] [address] Patient Name: ARASELI NEWMAN MR #: [id number] : 1935 Age/Sex: 82/F Req #: [id number] Adm Physician: Ordered by: JAREN MONTAÑO ACADEMIC ADVISOR Report #: [id number] Location: ER Room/Bed: Procedure: 1230-002 1 DX/CHEST SINGLE (PORTABLE) Exam Date: 04/03/18 Exa m Time: 1110 REPORT STATUS: Signed EXAMINATION: CHEST SINGLE (PORTABLE) COMPARISON: None INDICATI ON: Chest pain DISCUSSION: Frontal view of the chest obtained at 111 9 hours. HEART AND MEDIASTINUM: The heart is mildly enlarged. Small hiatal hernia cannot be excluded. The aorta is ectatic LINES: None. ROGER GS: The lungs are well inflated and clear. No pneumonia or pulmonary edema. PLEURA: No pleural effusion or pneumothorax. BONES AND SOFT TISSUES: The re are degenerative changes of the left shoulder. No focal osseous lesion. Th e soft tissues are normal. IMPRESSION: Mild cardiomegaly. Possible sm all hiatal hernia. No acute pulmonary process. Signed by: Dr. Alysa garcia MD on 04/03/2018 12:08 PM Dictated By: ALYSA ALVAREZ MD Electr onically Signed By: ALYSA ALVAREZ MD on 04/03/18 120 Transcribed By: BRIAN PHOENIX on 04/03/18 1208 COPY TO: JAREN MONTAÑO ACADEMIC ADVISOR Magnesium Level 2018-04-03 12:06:00* Test Item Value Reference Range Interpretation Comments Magnesium Level (test code = 33189-1) 2.4 1.3-2.1 [facility] [id number] 12:06:00* Test Item Value Reference Range Interpretation Comments Amylase Level (test code = 1798-8) 80 25-125 [facility]ase2018-12-30 12:06:00* Test Item Value Reference Range Interpretation Comments Lipase (test code = 3040-3) 6 8-78 [facility] [id number] 12:04:00* Test Item Value Reference Range Interpretation Comments Urine Color (test code = 5778-6) YELLOW YELLOW [facility] [id number] 12:04:00* Test Item Value Reference Range Interpretation Comments Urine Clarity (test code = 04843-6) CLEAR CLEAR [facility] Specific [id number] 12:04:00 * Test Item Value Reference Range Interpretation Comments Urine Specific [place] (test code = 5811-5) 1.030 1.010-1.02 5 [facility] [id number] 12:04:00* Test Item Value Reference Range Interpretation Comments Urine pH (test code = 52397-8) 5 5-7 [facility] Leukocyte [id number] 12:04:00* Test Item Value Reference Range Interpretation Comments Urine Leukocyte Esterase (test code = 5799-2) NEGATIVE NEGATIVE [facility] [id number] 12:04:00* Test Item Value Reference Range Interpretation Comments Urine Nitrite (test code = 40251-7) NEGATIVE NEGATIVE [facility] Fijfpuu1166-12-72 12:04:00* Test Item Value Reference Range Interpretation Comments Urine Protein (test code = 5804-0) NEGATIVE NEGATIVE [facility] Glucose (UA)2018-04-03 12:04:00* Test Item Value Reference Range Interpretation Comments Urine Glucose (UA) (test code = 2349-9) NEGATIVE NEGATIVE [facility] [id number] 12:04:00* Test Item Value Reference Range Interpretation Comments Urine Ketones (test code = 65497-9) NEGATIVE NEGATIVE [facility] Ixzfhwzpuecy3714-49-59 12:04:00* Test Item Value Reference Range Interpretation Comments Urine Urobilinogen (test code = 48979-6) 0.2 0.2-1 [facility] Loihfjzeg5802-80-34 12:04:00* Test Item Value Reference Range Interpretation Comments Urine Bilirubin (test code = 1978-6) NEGATIVE NEGATIVE [facility] Afvzy7629-27-19 12:04:00* Test Item Value Reference Range Interpretation Comments Urine Blood (test code = 87547-1) NEGATIVE NEGATIVE [facility] [id number] 12:04:00* Test Item Value Reference Range Interpretation Comments Urine WBC (test code = 5821-4) 0-5 0-5 [facility] [id number] 12:04:00* Test Item Value Reference Range Interpretation Comments Urine RBC (test code = 28294-1) 0-5 0-5 [facility] [id number] 12:04:00* Test Item Value Reference Range Interpretation Comments Urine Bacteria (test code = 16725-9) RARE NONE [facility] Epithelial [id number] 12:04:00 * Test Item Value Reference Range Interpretation Comments Urine Epithelial Cells (test code = 12309-8) FEW NONE [facility]landProthrombin [id number] 11:59:00* Test Item Value Reference Range Interpretation Comments Prothrombin Time (test code = 5902-2) 13.4 11.9-14.5 [facility]land[facility]thromb Time International Ratio 2018-04-03 11:59:00* Test Item Value Reference Range Interpretation Comments Prothromb Time International Ratio (test code = 6301-6) 0.94 Oral Anticoagulant Therapy INR Values:1. Low Intensity Therapy 1.5 - 2.02 . Moderate Intensity Therapy 2.0 - 3.03. High Intensity Therapy(1) 2.5 - 3. 54. High Intensity Therapy(2) 3.0 - 4.05. Panic Value INR > 5.0 [facility]landAct[facility] Partial Thromboplast Time 2018-04-03 11:59:00* Test Item Value Reference Range Interpretation Comments Activated Partial Thromboplast Time (test code = 07178-5) 28.5 23.8-35.5 [facility]landH[facility] RIGHT 2-3 VW (+/- PELVIS) [facility] [address] [place] [address] Patient Name: ARASELI NEWMAN MR #: [id number] : 1935 Age/Sex: 82/F Req #: [id number] Adm Physician: Ordered by: MARYCRUZ QUEZADA MD Report #: [id number] Location: ER Room/Bed: Procedure: [id number] DX/HIP RIGHT 2-3 VW (+/- PEL VIS) Exam Date: Exam Time: REPORT STATUS: Si gned EXAM: HIP RIGHT 2-3 VW (+/- PELVIS) INDICATION: Fall, right hip pain COMPARISON: None FINDINGS: BONES: No acute fractures. Subcentimeter focal sclerotic densities in the right humeral head most consistent with bone islands. JOINTS: No malalignment. Degenerative changes of the right hi p. Partially visualized left hip arthroplasty. SOFT TISSUES: Regional v ascular calcifications. IMPRESSION: No evidence of a pelvic or right hip fracture. Signed by: Dr. Enrrique Frank M.D. on 06/27/2017 9:24 PM Dictated By: ENRRIQUE FRANK MD 23 Transcribed By: ELIZABETH on 06/27/172123 COPY TO: MARYCRUZ QUEZADA MD KNEE RIGHT THREE VIEWS [place] [id number] Patient Name: ARASELI NEWMAN MR #: [id number] : 1935 Age/Sex: 82/F Req #: [id number] Adm Physician: Ordered by: MARYCRUZ QUEZADA MD Report #: [id number] Location: ER Room/Bed: Procedure: [id number] DX/KNEE RIGHT THREE VIEWS E xam Date: 06/27/17 Exam Time: 2100 REPORT STATU S: Signed EXAM: KNEE RIGHT THREE VIEWS, AP, lateral and oblique INDICATION: Fall, right knee pain COMPARISON: None FINDINGS: BONES: Acute nondi splaced fracture of the distal femoral diaphysis with intra-articular extensio n at the intercondylar notch. JOINTS: No malalignment. SOFT TISSUES: Suprapatellar joint effusion IMPRESSION: Acute nondisplaced fracture of the distal femoral diaphysis with intra-articular extension at the intercond ylar notch. Associated joint effusion. Signed by: Dr. Enrrique Frank M.D. on 06/27/2017 9:31 PM Dictated By: ENRRIQUE FRANK MD Electronically S igned By: ENRRIQUE FRANK MD on 06/27/172130 Transcribed By: ELIZABETH on 06/27/172130 COPY TO: MARYCRUZ QUEZADA MD
--- OUTSIDE RECORDS SUMMARY | 2019-08-18 00:30 | XMS REPORT | Clinical Summary ---
Author Author [employer] [employer] Organization [facility] [employer] Address Unknown Phone Unavailable Care Team Providers Care Cafeteria Manager Name Role Phone John Barkley MD PCP Allergies Comments Active Allergy Reactions Severity Noted Date Pregabalin Itching High 04/03/2018 Medications End Date Status Medication Sig Dispensed Refills Start Date Active PAROXETINE HCL ORAL Bedtime 0 Active fenofibrate (TRICOR) 48 Take 48 mg by 3 02/24/ 201 MG tablet mouth daily. 8 Active latanoprost (XALATAN) INSTILL 1 3 03/04/20 1 0.005 % ophthalmic DROP IN BOTH 8 solution EYES IN THE EVENING Active pantoprazole (PROTONIX) Take 20 mg by 0 20 MG EC tablet mouth nightly. Active lactose-reduced food Take by mouth 0 (BOOST BREEZE NUTRITIONAL nightly. ORAL) 02/24/2019 diclofenac (VOLTAREN) 50 Take 1 tablet 60 tablet 0 201 MG EC tablet (50 mg total) 9 by mouth 2 (two) times a day for 30 days. 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, right foot 10/07/2018 Synovitis and tenosynovitis, unspecified 10/07/2018 Vomiting 10/07/2018 Status post total right knee replacement 07/21/2018 OA (osteoarthritis) of knee 07/04/2018 Post-traumatic osteoarthritis of right knee 05/18/19 19 Lateral subluxation of right patella 01/06/2018 Closed displaced fracture of condyle of right femur 01/06/2018 Derangement of lateral meniscus of right knee 2017 Primary osteoarthritis of right knee 12/17/2017 Gout due to renal impairment, right ankle and foot 0 10/25/2017 Peripheral tear of medial meniscus, current injury, r ight knee, initial 07/06/2017 encounter Encounters Care Team Description Date Type Specialty Al Cali Jr., MD Post-traumatic osteoarthritis of right k nee (Primary Dx); Status post total right knee replacement 01/25/2019 Office Visit Orthopedic Surgery Carina Mota MA Closed displaced fracture of condyle of right femur, sequela (Primary Dx) 01/23/2019 Orders Only Orthopedic Surgery Al Cali Jr., MD Closed displaced fracture of condyle of right femur, sequela (Primary Dx) 09/28/2018 Office Visit Orthopedic Surgery Carina Mota MA Status post right knee replacement (Prim sarah Dx) 09/23/2018 Orders Only Orthopedic Surgery Al Cali Jr., MD Status post right knee replacement (Prim sarah Dx) 08/17/2018 Office Visit Orthopedic Surgery after 08/17/2018 Family History Medical History Relation Name Comments Stroke Father Ulcers Father stomach Other Mother heart problems Relation Name Status Comments Father Mother Social History Date Tobacco Use Types Packs/Day Years Used Never Smoker Smokeless Tobacco: Never Used Drinks/Week oz/Week Comments Alcohol Use No Sex Assigned at Date Recorded Not on file Industry Job Start Date Occupation Not on file Not on file Not on file Travel End Travel History Travel Start No recent travel history available. Last Filed Vital Signs Reading Time Taken Comments Vital Sign 131/79 01/25/2019 9:40 AM CDT Blood Pressure 77 01/25/2019 9:40 AM CDT Pulse - - Temperature - - Respiratory Rate - - Oxygen Saturation - - Inhaled Oxygen Concentration 68.9 kg (152 lb) 01/25/2019 9:40 AM CDT Weight 160 cm (5' 3") 01/25/2019 9:40 AM CDT Height 26.93 01/25/2019 9:40 AM CDT Body Mass Index Plan of Treatment Health Maintenance Due Date Last Done Comments SHINGLES VACCINES (#1) 1986 65+ PNEUMOCOCCAL VACCINE 2001 (1 of 2 - PCV13) INFLUENZA VACCINE 11/04/2019 Implants Device Identifier Shelf Expiration Date Model / Serial / L ot Implanted Type Area Manufactur er 12/24/2025 [id number] / / [id number] Evolutionmp Tibial Keeled Nonpor IPM Right: Knee MICROPORT Size 4 Standard Right - [id number] IMPLANT ORT HOPEDIC Implanted: Qty: 1 on 07/04/2018 by Al Arnold Jr., MD at [facility] 04/18/2026 [id number] / / [id number] Evolutionmp Femoral Cs/Cr Non-Por IPM Right: Knee MICROPORT Size 5 Primary Right - [id number] IMPLANT ORTH OPEDIC Implanted: Qty: 1 on 07/04/2018 by Al Arnold Jr., MD at [facility] 09/02/2025 [id number] / / [id number] Evolution Mp Cs Insert Size 4 Plus IPM Right: Knee MICROPORT 10mm Right - [id number] IMPLANT ORTHOPEDIC Implanted: Qty: 1 on 07/04/2018 by Al Arnold Jr., MD at [facility] 12/16/2024 KPON [id number] / / [id number] Patella Onlay 3peg 29mm Pe Advance Knee Joint Right: Knee MICROPORT - [id number] Implants Implanted: Qty: 1 on 07/04/2018 by Al Cali Jr., MD at [facility] 10/03/2019 [id number] / / [id number] Cement Bone Gm Hiviscocty 40gr Surgical Right: Knee DEPUY Smartmix - [id number] Bone ORTHO-KNEE Implanted: Qty: 2 on 07/04/2018 by Al Turk Jr., MD at [facility] Procedures Comments Procedure Name Priority Date/Time Associated Diag nosis XR KNEE 1 OR 2 VW RIGHT Routine 01/25/2019 Closed displaced fracture 9:47 AM CDT of condyle of right femur, sequela XR KNEE 1 OR 2 VW RIGHT Routine 09/28/2018 Status post right knee 10:45 AM CDT replacement XR KNEE 1 OR 2 VW RIGHT Routine 08/17/2018 Status post total right 10:05 AM CDT knee replacement after 08/17/2018 Results * XR Knee 1 Or 2 Vw Right (01/25/2019 9:47 AM CDT) Only the most recent of 3 results within the time period is included. Specimen Narrative Performed At [facility] Unchanged TKA. 2 v rt knee. 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
[2019-08-18] MEDS ORDERED: ONDANSETRON HCL INJ 2MG/ML 2ML 2 MG/ML VIAL IV STA (00:33)
[2019-08-18] MEDS ORDERED: MECLIZINE HCL 12.5 MG TAB PO ONE (00:45)
--- NOTE | 2019-08-18 00:52 | Emergency Department Note ---
History of Present Illnes History of Present Illness Chief Complaint: Neurological History of Present Illness This is a 84 year old female who presents via ems with c/o dizziness and the room is spinning, also with n/v, state dizziness is worse with movement of head and especially when she lays flat, denies sob, denies chest pain, . 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 Any updates have been documented here. Past Medical History Recent Fever: No Clinical Suspicion of Infectio: No New/Unexplained Change in Ment: No Past Medical History: UTI's, Hyperlipedemia Other Medical History: CHOLESTEROL, GERD, OSTEOPENIA Past Surgical History: T&A, Hip Replacement, Cataract Removal Other Surgery: 1956 T&A; eardrum repair; 1994 hysterectomy; cataract surgery; rotator cuff surgery; hip replacement Social History Smoking Cessation: Never Smoker Alcohol Use: None Any Illegal Drug Use: No Family History Family history of heart diseas: Yes Other Last Tetanus: 2013 Review of Systems Review of Systems Constitutional: no symptoms EENTM: no symptoms Cardiovascular: no symptoms Respiratory: no symptoms Gastrointestinal: nausea, vomiting (2 episodes of vomiting) Genitourinary: no symptoms Musculoskeletal: no symptoms Neurological: as per HPI Psychological: no symptoms Endocrine: no symptoms Hematological/Lymphatic: no symptoms Review of other systems All other systems reviewed and negative. Physical Exam Related Data Allergies: Coded Allergies: pregabalin (Verified Allergy, Severe, RASH, 04/03/18) Triage Vital Signs Vital Signs Date Time Temp Pulse Resp B/P (MAP) Pulse Ox O2 Delivery O2 Flow Rate FiO2 08/18/19 00:26 97.9 81 20 190/97 100 Vital signs reviewed: Yes Physical Exam CONSTITUTIONAL Constitutional: well-developed, well-nourished HENT HENT: normocephalic, atraumatic, oropharynx clear/moist, nose normal HENT L/R: left TM normal, right TM normal, left ext ear normal, right ext ear normal EYES Eyes: PERRL, conjunctivae normal NECK Neck: ROM normal PULMONARY Pulmonary: effort normal, breath sounds normal CARDIOVASCULAR Cardiovascular: regular rhythm, heart sounds normal, capillary refill normal, normal rate GASTROINTESTINAL Abdominal: soft, nontender, bowel sounds normal GENITOURINARY Genitourinary: exam deferred SKIN Skin: warm, dry MUSCULOSKELETAL Musculoskeletal: ROM normal NEUROLOGICAL Neurological: alert, oriented x 3, no gross motor or sensory deficits, other (horizontal nystagmus on exam, fast component to the left, when turning head to left pt becomes very dizzy and nauseated) PSYCHOLOGICAL Psychological: mood/affect normal, judgement normal Results Laboratory Laboratory Laboratory Tests Test 08/18/19 00:40 White Blood Count 6.99 x10e3/uL (4.8-10.8) Red Blood Count 4.60 x10e6/uL (3.6-5.1) Hemoglobin 14.4 g/dL (12.0-16.0) Hematocrit 41.4 % (34.2-44.1) Mean Corpuscular Volume 90.0 fL (81-99) Mean Corpuscular Hemoglobin 31.3 pg (28-32) Mean Corpuscular Hemoglobin Concent 34.8 g/dL (31-35) Red Cell Distribution Width 12.6 % (11.7-14.4) Platelet Count 183 x10e3/uL (140-360) Neutrophils (%) (Auto) 63.6 % (38.7-80.0) Lymphocytes (%) (Auto) 24.9 % (18.0-39.1) Monocytes (%) (Auto) 8.3 % (4.4-11.3) Eosinophils (%) (Auto) 1.9 % (0.0-6.0) Basophils (%) (Auto) 0.7 % (0.0-1.0) Neutrophils # (Auto) 4.5 (2.1-6.9) Lymphocytes # (Auto) 1.7 (1.0-3.2) Monocytes # (Auto) 0.6 (0.2-0.8) Eosinophils # (Auto) 0.1 (0.0-0.4) Basophils # (Auto) 0.1 (0.0-0.1) Absolute Immature Granulocyte (auto 0.04 x10e3/uL (0-0.1) Sodium Level 138 mmol/L (136-145) Potassium Level 3.4 mmol/L (3.5-5.1) Chloride Level 101 mmol/L (98-107) Carbon Dioxide Level 24 mmol/L (22-29) Anion Gap 16.4 mmol/L (8-16) Blood Urea Nitrogen 19 mg/dL (7-26) Creatinine 0.70 mg/dL (0.57-1.11) Estimat Glomerular Filtration Rate > 60 ML/MIN (60-) BUN/Creatinine Ratio 27 (6-25) Glucose Level 149 mg/dL (74-118) Calcium Level 9.4 mg/dL (8.4-10.2) Total Bilirubin 0.5 mg/dL (0.2-1.2) Aspartate Amino Transf (AST/SGOT) 21 IU/L (5-34) Alanine Aminotransferase (ALT/SGPT) 21 IU/L (0-55) Alkaline Phosphatase 80 IU/L (40-150) Creatine Kinase 139 IU/L (29-168) Creatine Kinase MB 4.70 ng/mL (0-5.0) Troponin I 0.012 ng/mL (0-0.300) Total Protein 7.8 g/dL (6.5-8.1) Albumin 4.4 g/dL (3.5-5.0) Globulin 3.4 g/dL (2.3-3.5) Albumin/Globulin Ratio 1.3 (0.8-2.0) Lab results reviewed: Yes Imaging Imaging results reviewed: Yes Impressions Procedure: [id number] CT/CT BRAIN WO Exam Date: 08/18/19 Exam Time: 0100 REPORT STATUS: Signed EXAMINATION: Head CT without contrast. HISTORY:Dizziness, high blood pressure. COMPARISON:None. TECHNIQUE: Multidetector axial images were obtained from the foramen magnum to the vertex without contrast. The images were reconstructed using brain and bone algorithms. Thin section brain images were reformatted into coronal and sagittal planes. Dose modulation, iterative reconstruction, and/or weight based adjustment of the mA/kV was utilized to reduce the radiation dose to as low as reasonably achievable. Intravenous contrast: None IMAGE QUALITY: Acceptable. FINDINGS: Skull/scalp: No lytic or blastic. lesions. No surgical changes. Parenchyma: Nonspecific bilateral frontoparietal patchy white matter hypodensity are likely related to small vessel ischemic changes. No acute hemorrhage, mass or acute major vascular territorial infarct. Arteries: No density suggestive of thrombosis. Mild atherosclerotic calcification in bilateral carotid siphon. Dural sinuses: No abnormal density suggestive of thrombosis. Ventricles: No hydrocephalus or displacement. Extra-axial spaces: No abnormal density. Brain volume: Mild generalized cerebral volume loss. Craniocervical junction: No mass, Chiari malformation, or basilar invagination. Sella: No mass. Paranasal/mastoid sinuses: Imaged portions unremarkable. IMPRESSION: No acute intracranial abnormality. Mild supratentorial white matter microvascular ischemic changes. Generalized age-related cerebral volume loss. Signed by: Dr. Dipti Urban M.D. on 08/18/2019 1:17 AM Dictated By: DIPTI URBAN MD 6 Transcribed By: ELIZABETH on 08/18/19116 COPY TO: LOUIS AMADOR MD~ Procedures 12 Lead ECG Interpretation Welder Gun: Interpreted by ED physician Rhythm: sinus rhythm Ectopy: PVC's (occasional) Rate: normal (89) QRS axis: normal ST segment flattening: all T waves normal: No (inverte t waves v4 and v5) Q waves: III, V1, V2 Clinical Impression: abnormal ECG (artifact present on ekg, no stemi, no signs of ischemia) Critical Care Time Subsequent provider I assumed direction of critical care for this patient from another provider of my specialty. Assessment & Plan Assessment & Plan Problems: (1) Vertigo, benign positional Assessment & Plan pt with dizziness, n/v made worse by movement of head especially turning head to left, cbc, cmp, ekg, cardiac enzymes, cr brain ordered to eval for/rule out myocardial infarction, electrolyte abnormality, intracranial amorality zofran 4 mg iv ordered antivert 25 mg po ordered pt's dizziness resolved, will discharge with the following prescriptions antiver 25 mg po q 6 hours prn dizziness zofran odt 4 mg 1 sl q 6 hours prn nausea Reassessment Reassessment time: 01:41 Reassessment pt's dizziness n/v is now resolved. Depart Disposition: HOME, SELF-CARE Last Vital Signs Date Time Temp Pulse Resp B/P (MAP) Pulse Ox O2 Delivery O2 Flow Rate FiO2 08/18/19 00:26 97.9 81 20 190/97 100 Home Meds Active Scripts Levofloxacin (LEVAQUIN) 500 Mg Tablet, 500 MG PO DAILY for 5 Days Prov:GLORIA PERALTA MD 04/04/18 Metronidazole (FLAGYL) 500 Mg Tablet, 500 MG PO TID for 5 Days Prov:GLORIA PERALTA MD 04/04/18 Ondansetron Hcl* (ZOFRAN*) 4 Mg Tablet, 4 MG PO Q6H, #40 Prov:GLORIA PERALTA MD 04/04/18 Reported Medications Pantoprazole Sodium* (PROTONIX) 40 Mg Tablet.dr, 20 MG PO HS, TAB 04/03/18 Paroxetine Hcl (PAROXETINE HCL) 20 Mg Tablet, 20 MG PO HS 07/31/13 Medications in the ED Ondansetron HCl 4 mg NOW STAT IV ; Start 08/18/19 at 00:33; Stop 08/18/19 at 00:34; Status UNV Meclizine HCl 25 mg ONCE ONCE PO ; Start 08/18/19 at 00:45; Stop 08/18/19 at 00:46; Status UNV LOUIS AMADOR MD August 18, 2019 00:52
[2019-08-18 01:00] LABS: BASOPHILS # (AUTO) 0.1 (0.0-0.1); BASOPHILS % 0.7 % (0.0-1.0); EOSINOPHILS # (AUTO) 0.1 (0.0-0.4); EOSINOPHILS % 1.9 % (0.0-6.0); HEMATOCRIT 41.4 % (34.2-44.1); HEMOGLOBIN 14.4 g/dL (12.0-16.0); LYMPHOCYTES # (AUTO) 1.7 (1.0-3.2); LYMPHOCYTES % 24.9 % (18.0-39.1); MEAN CORPUSCULAR HEMOGLOBIN 31.3 pg (28-32); MEAN CORPUSCULAR HGB CONC 34.8 g/dL (31-35); MONOCYTES # (AUTO) 0.6 (0.2-0.8); MONOCYTES % 8.3 % (4.4-11.3); NEUTROPHILS # (AUTO) 4.5 (2.1-6.9); NEUTROPHILS % 63.6 % (38.7-80.0); PLATELET COUNT 183 x10e3/uL (140-360); RED CELL DISTRIBUTION WIDTH 12.6 % (11.7-14.4)
[2019-08-18 01:18] LABS: ALANINE AMINOTRANSFERASE 21 IU/L (0-55); ALBUMIN 4.4 g/dL (3.5-5.0); ALBUMIN/GLOBULIN RATIO 1.3 (0.8-2.0); ALKALINE PHOSPHATASE 80 IU/L (40-150); ANION GAP 16.4 mmol/L (8-16); BLOOD UREA NITROGEN 19 mg/dL (7-26); BUN/CREATININE RATIO 27 (6-25); CALCIUM 9.4 mg/dL (8.4-10.2); CARBON DIOXIDE 24 mmol/L (22-29); CHLORIDE 101 mmol/L (98-107); CREATINE KINASE 139 IU/L (29-168); EST GLOMERULAR FILTRATION RATE > 60 ML/MIN (60-); GLUCOSE 149 mg/dL (74-118); POTASSIUM 3.4 mmol/L (3.5-5.1); SODIUM 138 mmol/L (136-145)
--- NOTE | 2019-08-18 01:20 | Diagnostic Imaging Report ---
EXAMINATION: Head CT without contrast. HISTORY:Dizziness, high blood pressure. COMPARISON:None. TECHNIQUE: Multidetector axial images were obtained from the foramen magnum to the vertex without contrast. The images were reconstructed using brain and bone algorithms. Thin section brain images were reformatted into coronal and sagittal planes. Dose modulation, iterative reconstruction, and/or weight based adjustment of the mA/kV was utilized to reduce the radiation dose to as low as reasonably achievable. Intravenous contrast: None IMAGE QUALITY: Acceptable. FINDINGS: Skull/scalp: No lytic or blastic. lesions. No surgical changes. Parenchyma: Nonspecific bilateral frontoparietal patchy white matter hypodensity are likely related to small vessel ischemic changes. No acute hemorrhage, mass or acute major vascular territorial infarct. Arteries: No density suggestive of thrombosis. Mild atherosclerotic calcification in bilateral carotid siphon. Dural sinuses: No abnormal density suggestive of thrombosis. Ventricles: No hydrocephalus or displacement. Extra-axial spaces: No abnormal density. Brain volume: Mild generalized cerebral volume loss. Craniocervical junction: No mass, Chiari malformation, or basilar invagination. Sella: No mass. Paranasal/mastoid sinuses: Imaged portions unremarkable. IMPRESSION: No acute intracranial abnormality. Mild supratentorial white matter microvascular ischemic changes. Generalized age-related cerebral volume loss. Signed by: Dr. Dipti Doran M.D. on 08/18/2019 1:17 AM
[2019-08-18 02:16] VITALS: BP 145/81
== END 2019-08-18 02:24 | disposition home or self-care (01) ==
LOC: ER 00:26
DX: H81.10 Benign paroxysmal vertigo, unspecified ear (principal); R11.2 Nausea with vomiting, unspecified
CPT/HCPCS: 36415; 70450; 80053; 82550; 82553; 84484; 85025; 93005; 96374; 99284; J2405; J8597

== ENCOUNTER → 2020-05-02 | Outpatient (CLI) | payer MEDICARE ==
[~2020-05-02] MED LIST changes: +REGADENOSON 0.4 MG/5 ML SYR IV ONE
== END ==
LOC: NM 08:38
PROVIDERS: ATTEND Internal Medicine Interventional Cardiology
DX: I20.8 Other forms of angina pectoris (principal)
CPT/HCPCS: 78452; 93017; A9502; J2785

== ENCOUNTER → 2024-02-01 | Outpatient (REF) | payer MEDICARE ==
[~2024-02-01] MED LIST changes: -REGADENOSON 0.4 MG/5 ML SYR IV ONE
== END ==
LOC: US 09:41
PROVIDERS: ATTEND Urology
DX: N39.0 Urinary tract infection, site not specified (principal)
CPT/HCPCS: 74018; 76770; 76857

== ENCOUNTER 2024-02-27 11:10 | Emergency (ER) | payer MEDICARE ==
[~2024-02-27] VITALS: Ht 160 cm; Wt 72.6 kg
[2024-02-27 11:30] VITALS: PULSE 87; RESP 15; TEMP 97.4; O2SAT 100
[2024-02-27 12:18] LABS: CLARITY,URINE CLOUDY (CLEAR); COLOR,URINE YELLOW (YELLOW)
[2024-02-27 12:19] LABS: BILIRUBIN,URINE NEGATIVE (NEGATIVE); GLUCOSE, URINE 500 (NEGATIVE); KETONES,URINE NEGATIVE (NEGATIVE); LEUKOCYTE ESTERASE ,URINE LARGE (NEGATIVE); NITRITE,URINE POSITIVE (NEGATIVE); PH,URINE 6.5 (5 - 7); PROTEIN,URINE DIPSTICK 2+ (NEGATIVE); URINE UROBILINOGEN 0.2 mg/dL (0.2 - 1)
[2024-02-27 12:35] LABS: BACTERIA,URINE MANY /HPF; WBC,URINE (MAN) >50 /HPF (0-5)
[2024-02-27 12:36] LABS: EPITHELIAL CELLS,URINE MODERATE /LPF
[2024-02-27] MEDS ORDERED: PYRIDIUM100 MG PO (12:47)
[2024-02-27] MEDS ORDERED: CEFDINIR300 MG PO (12:47)
== END 2024-02-27 13:06 | disposition home or self-care (01) ==
LOC: ER 11:16
DX: R30.0 Dysuria (principal); N39.0 Urinary tract infection, site not specified; E78.5 Hyperlipidemia, unspecified; K21.9 Gastro-esophageal reflux disease without esophagitis; M85.88 Other specified disorders of bone density and structure, other site; Z96.642 Presence of left artificial hip joint
CPT/HCPCS: 81001; 87086; 87186; 99283

== ENCOUNTER → 2024-10-12 | Day surgery (SDC) | payer MEDICARE ==
[2024-10-04 10:53] LABS: BASOPHILS % 0.6 % (0.0-1.0); EOSINOPHILS % 2.0 % (0.0-6.0); LYMPHOCYTES % 21.1 % (18.0-39.1); MONOCYTES % 9.6 % (4.4-11.3); NEUTROPHILS % 66.5 % (38.7-80.0); RED CELL DISTRIBUTION WIDTH 12.4 % (11.7-14.4)
[~2024-10-12] MED LIST changes: +CEFDINIR300 MG PO; +JARDIANCE10 MG PO; +LIDOCAINE HCL 2% LOCAL INJ 5 ML SDV VIAL INJ ONE; +LIPITOR20 MG PO; +OMEPRAZOLE40 MG PO; +PROPOFOL IV EMULSION 10 MG/ML 20 ML VIAL ONE; +PYRIDIUM100 MG PO; +SERTRALINE HCL50 MG PO
[2024-10-12] MEDS: LACTATED RINGER'S 1,000 ML ONE (07:57)
[2024-10-12 08:53] VITALS: TEMP 97.4
[2024-10-12 09:20] VITALS: BP 142/72; PULSE 60; RESP 18; O2SAT 97
== END | disposition home or self-care (01) ==
LOC: OR 06:04
PROVIDERS: ATTEND Internal Medicine Gastroenterology
DX: K21.00 Gastro-esophageal reflux disease with esophagitis, without bleeding (principal); K44.9 Diaphragmatic hernia without obstruction or gangrene; K29.50 Unspecified chronic gastritis without bleeding; E11.9 Type 2 diabetes mellitus without complications; E78.5 Hyperlipidemia, unspecified; F32.A Depression, unspecified; Z79.84 Long term (current) use of oral hypoglycemic drugs; Z01.810 Encounter for preprocedural cardiovascular examination; Z01.812 Encounter for preprocedural laboratory examination
CPT/HCPCS: 36415 ×2; 43239; 82948; 85025; 88305; 88342; 93005; J2003; J2704; J7121

== ENCOUNTER → 2024-11-09 | Outpatient (REF) | payer MEDICARE ==
[~2024-11-09] MED LIST changes: -LIDOCAINE HCL 2% LOCAL INJ 5 ML SDV VIAL INJ ONE; -PROPOFOL IV EMULSION 10 MG/ML 20 ML VIAL ONE
== END ==
LOC: NM 08:31
PROVIDERS: ATTEND Internal Medicine Gastroenterology
DX: E11.9 Type 2 diabetes mellitus without complications (principal); I10 Essential (primary) hypertension; R10.13 Epigastric pain; R14.0 Abdominal distension (gaseous); R63.4 Abnormal weight loss; Z68.26 Body mass index [BMI] 26.0-26.9, adult; Z71.3 Dietary counseling and surveillance; Z78.9 Other specified health status
CPT/HCPCS: 78264; A9541